=== PATIENT | female | born 1965 | race Caucasian/White ===

== ENCOUNTER 2023-12-20 10:18 | Observation (INO) ==
--- NOTE | 2023-12-20 10:43 | Emergency Department Note ---
Impression & Plan Chest pain, Transaminitis, Cholelithiasis, Hepatic steatosis ED Provider Note NAME: DENVER LYLE AGE: 58 SEX: F : 1965 ARRIVES VIA: Walk-In INFORMANT: Patient ED PROVIDER(S): Camron Mitchell MD CHIEF COMPLAINT: chest pain PLAN: Disposition: Admit MEDICAL DECISION MAKING: The patient is a pleasant 58-year-old woman with a past medical history of gastric bypass (10 years ago in [place]) hypertension, hyperlipidemia who presents to the Emergency Department via walk-in and accompanied by family for evaluation of acute onset epigastric and substernal chest pain began acutely around 4 AM last night and has been constant since then. She reports the pain is a stabbing sensation going to her back. She denies any associated shortness of breath or worsening with inspiration. She reports feeling nauseated but denies vomiting. She denies any diarrhea or constipation. She denies any fevers or chills. She reports her pain is a 7/10. On evaluation the patient is no distress, afebrile with vital signs otherwise stable. She appears clinically dry. Abdomen is nontender. EKG without overt acute ischemia. Chest x-ray negative for acute cardiopulmonary process. WBC, hemoglobin and platelets within normal limits. There is no left shift. Chemistry without metabolic acidosis. Patient LFTs are mildly elevated with total bili 1.8, direct bilirubin 1.2, AST and ALT 466 and 243, respectively and alk phos 143. INR 1.0. HS Troponin undetectable. CTA of the chest with dissection protocol was performed was negative for acute aortic pathology, PE or acute cardiopulmonary process otherwise. Visualized abdomen is unremarkable with post gastric bypass findings noted. Given the patient's transaminitis with obstructive pattern gallbladder ultrasound was ordered. On reevaluation however the patient was reporting improvement in her symptoms with minimal pain following IV fluid hydration, IV APAP, famotidine. She rated her discomfort at this time as a 3/10. Gallbladder ultrasound demonstrates cholelithiasis with mild gallbladder distention. However there is no biliary ductal dilatation or gallbladder wall thickening. There is no sonographic Khan sign. The pancreatic body is normal. Findings are not suggestive of acute cholecystitis though a HIDA scan could be obtained if indicated. Hepatic steatosis is also described. Case was discussed with Victoria Tabor, general surgery PA-C with Dr. Talbert, general surgery. Agrees with admission to medicine service for MRCP and trending of LFTs given the patient has no abdominal pain at this time and no evidence of ductal dilatation on ultrasound. Appreciate consultation recommendations. Case was discussed with Dr. Acosta, [facility] hospitalist, who will evaluate the patient for admission. Further management per admitting team. Triage Nursing notes reviewed and agree them. Prior/external medical records reviewed Vital Signs: reviewed Differential diagnosis: Gastroenteritis, food borne illness, infections, appendicitis, diverticulitis, inflammatory bowel disease, obstruction, GI bleed, biliary pathology, volvulus, as well as other pathologies. ER treatment provided: See below. Diagnostics interpreted by me: ECG: Normal sinus rhythm, 83 bpm, no ectopy, no overt ST elevation or depression, QTc 451, QRS 82. Cardiac Monitoring: An order for continuous cardiac monitoring was placed and demonstrated Normal sinus rhythm, 83 bpm, no ectopy Laboratory studies: See below Imaging studies: See below Consultation(s): Victoria Tabor general surgery PA-Gladys with Dr. Talbert, general surgery Case was discussed with Dr. Acosta, [facility] hospitalist, who will evaluate the patient for admission. HPI: The patient is a pleasant 58-year-old woman with a past medical history of gastric bypass (10 years ago in [place]) hypertension, hyperlipidemia who presents to the Emergency Department via walk-in and accompanied by family for evaluation of acute onset epigastric and substernal chest pain began acutely around 4 AM last night and has been constant since then. She reports the pain is a stabbing sensation going to her back. She denies any associated shortness of breath or worsening with inspiration. She reports feeling nauseated but denies vomiting. She denies any diarrhea or constipation. She denies any fevers or chills. She reports her pain is a 7/10. ROS: See above HPI for pertinent positives & negatives. A total of 10 systems reviewed and were otherwise negative. VITALS:See Below PHYSICAL EXAMINATION: GENERAL: Awake, alert, uncomfortable-appearing, in no distress, BMI 39.4. HENT: Normocephalic, atraumatic. Oropharynx with dry mucous membranes and otherwise unremarkable. EYES: Normal conjunctiva. Sclera non-icteric. NECK: Supple. No nuchal rigidity. FROM. No JVD. RESPIRATORY: Clear to auscultation. CARDIAC: Regular rate, normal rhythm. 3/6 systolic murmur. Extremities warm and well perfused. Pulses equal. ABDOMEN: Soft, non-distended. No tenderness to palpation. No rebound or guarding. No masses. MUSCULOSKELETAL: Chest examination reveals no tenderness. The back is symmetrical on inspection without obvious abnormality. There is no CVA tenderness to palpation. No joint edema. LOWER EXTREMITIES: Calves are equal size bilaterally and non-tender. No edema. No discoloration. NEURO: Normal sensorium. No sensory or motor deficits noted. SKIN: No rash or jaundice noted. Camron Mitchell MD Past Med/Surg History Problem List (Updated 12/21/23 @ 00:29 by Camron Mitchell MD) Hepatic steatosis (Acute) Cholelithiasis (Acute) Elevated LFTs Cholelithiasis Choledocholithiasis Transaminitis (Acute) Chest pain (Acute) Tear of lateral meniscus of left knee Osteoarthritis of left knee Ovarian cyst Depression Closed fracture of right distal radius (Acute) Medical History Hyperlipidemia Diabetes Hypertension Surgical History S/P tonsillectomy History of umbilical hernia repair S/P gastric bypass S/P shoulder surgery 2 separate shoulders Family History Grandmother (Maternal) Colorectal cancer Grandfather (Maternal) Myocardial infarction Other Diabetes Hypertension Denies family history of Ovarian cancer Prostate cancer Breast cancer Uterine cancer Social History Smoking Status: Never smoker Hx Alcohol Use: Yes Alcohol type: wine Hx Substance Use: No Preferred Language: Albanian Communication Ability: Effective 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 Beliefs That Will Affect Care: None Current Living Situation: Family Feels Safe at Home: Yes Safety Concerns: Feels Safe At This Time Assistive Devices: Glasses Allergies Allergies Allergy/AdvReac Type Severity Reaction Status Date / Time Penicillins Allergy Mild Rash Verified 07/27/23 09:20 Home Meds Home Medications Medication Instructions Recorded Confirmed multivitamin [Daily Multivitamin] 1 tab PO DAILY 12/01/22 12/20/23 aripiprazole 2 mg tablet 2 mg PO DAILY 01/04/23 12/20/23 lamotrigine 150 mg tablet 150 mg PO DAILY 01/04/23 12/20/23 lisinopril 10 mg tablet 10 mg PO DAILY 01/04/23 12/20/23 vilazodone 40 mg tablet (Viibryd) 40 mg PO DAILY 01/04/23 12/20/23 celecoxib 200 mg capsule 200 mg PO DAILY PRN Pain 12/20/23 12/20/23 ergocalciferol (vitamin D2) 1,250 50,000 unit PO WK 12/20/23 12/20/23 mcg (50,000 unit) capsule oxybutynin chloride 15 mg 15 mg PO DAILY PRN urinary 12/20/23 12/20/23 tablet,extended release 24 hr discomfort rosuvastatin 5 mg tablet 5 mg PO HS 12/20/23 12/20/23 semaglutide 2 mg/dose (8 mg/3 mL) 2 mg subcut WK 12/20/23 12/20/23 subcutaneous pen injector (Ozempic) Results & Data (ED) Vital Signs Vital Signs - 24 hr 12/20/23 10:26 12/20/23 10:39 12/20/23 12:00 Temperature 36.4 C L Temperature Source Skin Pulse Rate 86 84 Pulse Rate [Apical] Pulse Rate from SpO2 Sensor Pulse Rhythm Regular Pulse Rhythm [Apical] Pulse Strength [Apical] Respiratory Rate 20 22 Respiratory Effort / Characteristics Non-Labored Spontaneous Respiratory Depth Normal Respiratory Pattern Regular Blood Pressure 131/69 109/69 Blood Pressure [Left Arm] Blood Pressure Mean 89 78 Blood Pressure Mean [Left Arm] Pulse Oximetry 96 92 Oxygen Delivery Method Room Air Room Air Sepsis Recent Fever Within 48 Hours No Sepsis New/Unexplained Change in Mental Status N/A Sepsis Action Taken by Nursing No Action Required 12/20/23 12:12/20/23 12:20 12/20/23 12:21 Temperature Temperature Source Pulse Rate 74 73 68 Pulse Rate [Apical] Pulse Rate from SpO2 Sensor 74 71 Pulse Rhythm Pulse Rhythm [Apical] Pulse Strength [Apical] Respiratory Rate 19 14 Respiratory Effort / Characteristics Respiratory Depth Respiratory Pattern Blood Pressure Blood Pressure [Left Arm] Blood Pressure Mean Blood Pressure Mean [Left Arm] Pulse Oximetry 90 87 L Oxygen Delivery Method Sepsis Recent Fever Within 48 Hours Sepsis New/Unexplained Change in Mental Status Sepsis Action Taken by Nursing 12/20/23 12:30 12/20/23 12:30 12/20/23 12:42 Temperature Temperature Source Pulse Rate 63 69 Pulse Rate [Apical] Pulse Rate from SpO2 Sensor 66 64 Pulse Rhythm Pulse Rhythm [Apical] Pulse Strength [Apical] Respiratory Rate 14 14 Respiratory Effort / Characteristics Respiratory Depth Respiratory Pattern Blood Pressure 109/71 Blood Pressure [Left Arm] Blood Pressure Mean 79 Blood Pressure Mean [Left Arm] Pulse Oximetry 86 L 93 Oxygen Delivery Method Sepsis Recent Fever Within 48 Hours Sepsis New/Unexplained Change in Mental Status Sepsis Action Taken by Nursing 12/20/23 12:57 12/20/23 13:00 12/20/23 13:00 Temperature Temperature Source Pulse Rate 77 76 Pulse Rate [Apical] Pulse Rate from SpO2 Sensor 71 76 Pulse Rhythm Pulse Rhythm [Apical] Pulse Strength [Apical] Respiratory Rate 30 H 18 Respiratory Effort / Characteristics Respiratory Depth Respiratory Pattern Blood Pressure 118/72 Blood Pressure [Left Arm] Blood Pressure Mean 87 Blood Pressure Mean [Left Arm] Pulse Oximetry 92 94 Oxygen Delivery Method Sepsis Recent Fever Within 48 Hours Sepsis New/Unexplained Change in Mental Status Sepsis Action Taken by Nursing 12/20/23 13:24 12/20/23 13:27 12/20/23 13:30 Temperature Temperature Source Pulse Rate 71 77 Pulse Rate [Apical] Pulse Rate from SpO2 Sensor 72 77 Pulse Rhythm Pulse Rhythm [Apical] Pulse Strength [Apical] Respiratory Rate 12 14 Respiratory Effort / Characteristics Respiratory Depth Respiratory Pattern Blood Pressure 124/75 Blood Pressure [Left Arm] Blood Pressure Mean 86 Blood Pressure Mean [Left Arm] Pulse Oximetry 96 97 Oxygen Delivery Method Sepsis Recent Fever Within 48 Hours Sepsis New/Unexplained Change in Mental Status Sepsis Action Taken by Nursing 12/20/23 13:33 12/20/23 15:04 Temperature 36.7 C Temperature Source Oral Pulse Rate 75 Pulse Rate [Apical] 74 Pulse Rate from SpO2 Sensor 76 Pulse Rhythm Pulse Rhythm [Apical] Regular Pulse Strength [Apical] Normal Respiratory Rate 19 18 Respiratory Effort / Characteristics Non-Labored Spontaneous Respiratory Depth Normal Respiratory Pattern Regular Blood Pressure Blood Pressure [Left Arm] 117/83 Blood Pressure Mean Blood Pressure Mean [Left Arm] 94 Pulse Oximetry 96 99 Oxygen Delivery Method Room Air Sepsis Recent Fever Within 48 Hours Sepsis New/Unexplained Change in Mental Status Sepsis Action Taken by Nursing Laboratory Data Attestation: I reviewed the patient's lab results. 12/20/23 10:58 12/20/23 10:58 Lab Results 12/20/23 12/20/23 Range/Units 10:58 11:06 WBC 5.08 (4.8-10.8) K/ul RBC 4.03 L (4.20-5.40) M/uL Hgb 12.4 (12.0-16.0) g/dl POC Hgb 12.2 (12.0-16.0) g/dl Hct 36.8 L (37.0-47.0) % POC Hct 36 L (37-47) % MCV 91.3 (80.0-100.0) fL MCH 30.8 (25.0-34.0) pg MCHC 33.7 (32.0-36.0) g/dL RDW Std Deviation 43.2 (36.4-46.3) fL RDW Coeff of Christelle 13.0 (11.5-14.5) % Plt Count 141 (130-400) K/uL MPV 10.3 (9.4-12.4) fL Immature Gran % (Auto) 0.2 % Neut % (Auto) 74.4 % Lymph % (Auto) 16.1 % Perry % (Auto) 8.1 % Eos % (Auto) 0.6 % Baso % (Auto) 0.6 % Neut # (Auto) 3.78 (1.40-6.50) K/uL Lymph # (Auto) 0.82 L (1.20-3.40) K/uL Perry # (Auto) 0.41 (0.11-0.59) K/uL Eos # (Auto) 0.03 (0.00-0.50) K/uL Baso # (Auto) 0.03 (0.00-0.20) K/uL Immature Gran # (Auto) 0.01 (0.01-0.20) K/uL PT 10.5 (9.0-12.0) Seconds INR 1.0 (0.9-1.1) POC Sodium 139 (135-144) mmol/L Sodium 139 (136-145) mmol/L POC Potassium 4.2 (3.3-5.0) mmol/L Potassium 4.3 (3.5-5.1) mmol/L POC Chloride 105 (101-112) mmol/L Chloride 105 (98-107) mmol/L Carbon Dioxide 26 (21-32) mmol/L POC Total CO2 24 (24-31) mmol/L Anion Gap 8 (3-11) POC Anion Gap 15.0 L (16-25) mmol/L POC BUN 16 (7-18) mg/dl BUN 16 (6-23) mg/dl Creatinine 0.67 (0.6-1.2) mg/dl POC Creatinine 0.7 (0.6-1.3) mg/dl Est Cr Clr Drug Dosing 112.8 ml/min Est GFR ( Amer) 113.1 ml/min Est GFR (Non-Af Amer) 97.6 ml/min BUN/Creatinine Ratio 23.9 H (10-20) Glucose 90 (70-99(Fasting)) mg/dl POC Glucose (other) 92 (70-99) mg/dl Calcium 9.4 (8.6-10.3) mg/dl POC Ioniz Calcium Blanca 1.17 (1.12-1.32) mmol/l Total Bilirubin 1.8 H (0.2-1.0) mg/dl Direct Bilirubin 1.2 H (0-0.2) mg/dl AST 466 H (13-39) U/L ALT 243 H (7-52) U/L Alkaline Phosphatase 143 H (34-104) U/L Troponin I High Sens < 2.3 (0-14) pg/ml Total Protein 7.3 (6.0-8.3) gm/dl Albumin 4.6 (3.4-5.0) gm/dl Globulin 2.7 (2.5-4.0) gm/dl Albumin/Globulin Ratio 1.7 (0.9-2) Lipase 64 (11-82) U/L Administered Medications Ergocalciferol (Ergocalciferol 1250 Mcg (50,000 Units) Cap) 1,250 mcg PO Q7D [facility] Stop: 01/19/24 18:59 Last Admin: 12/20/23 21:36 Dose: 1,250 mcg Documented By: IVETH Famotidine (Famotidine 10 Mg Tablet) 10 mg PO BID [facility] Stop: 01/19/24 20:59 Last Admin: 12/20/23 21:36 Dose: 10 mg Documented By: IVETH Acetaminophen (Ofirmev) 1,000 mg in 100 mls @ 400 mls/hr IV Q8H PRN PRN Reason: pain, first line Stop: 12/23/23 17:59 Last Infusion: 12/20/23 20:25 Dose: Infused Documented By: Admin: 12/20/23 20:07 Dose: 400 mls/hr Documented By: IVETH Ceftriaxone Sodium (Rocephin) 2,000 mg in 50 mls @ 100 mls/hr IV Q24H [facility] Stop: 12/30/23 18:29 Last Infusion: 12/20/23 20:10 Dose: Infused Documented By: Admin: 12/20/23 19:34 Dose: 100 mls/hr Documented By: IVTEH Metronidazole (Flagyl) 500 mg in 100 mls @ 100 mls/hr IV Q8H [facility]; Protocol Stop: 12/30/23 18:29 Last Infusion: 12/20/23 21:15 Dose: Infused Documented By: Admin: 12/20/23 20:08 Dose: 100 mls/hr Documented By: IVETH Miscellaneous (Vilazodone [Viibryd] 40 Mg Tablet- Order Awaiting Action) 1 each N/A QS [facility] Stop: 01/19/24 19:29 Last Admin: 12/21/23 00:06 Dose: Not Given Documented By: Admin: 12/20/23 18:54 Dose: Not Given Documented By: MARCO ANTONIO Discontinued Medications Sodium Chloride (Nss) 1,000 mls @ 999 mls/hr IV .Q1H1M ONE Stop: 12/20/23 11:39 Last Infusion: 12/20/23 14:57 Dose: Infused Documented By: Admin: 12/20/23 11:00 Dose: 999 mls/hr Documented By: CATRINA Acetaminophen (Ofirmev) 1,000 mg in 100 mls @ 400 mls/hr IV NOW STA Stop: 12/20/23 10:53 Last Infusion: 12/20/23 11:26 Dose: Infused Documented By: Admin: 12/20/23 10:59 Dose: 400 mls/hr Documented By: CATRINA Famotidine (Pepcid 20mg Iv Push) 20 mg in 5 mls @ 2.5 mls/min IV NOW STA Stop: 12/20/23 10:40 Last Admin: 12/20/23 10:58 Dose: 2.5 mls/min Documented By: CATRINA Multivitamins 10 ml/ Thiamine HCl 100 mg/ Folic Acid 1 mg/Sodium Chloride 1,011.2 mls @ 500 mls/hr IV .Q2H2M ONE Stop: 12/20/23 20:40 Last Infusion: 12/21/23 00:11 Dose: Infused Documented By: Admin: 12/20/23 21:53 Dose: 500 mls/hr Documented By: IVETH Ioversol (Optiray 320 100ml) 112 ml IV ONCE ONE Stop: 12/20/23 11:34 Last Admin: 12/20/23 11:33 Dose: 112 ml Documented By: MICHELE Lorazepam (Lorazepam 2 Mg/1 Ml Vial) 0.5 mg IV NOW STA Stop: 12/20/23 16:21 Last Admin: 12/20/23 16:27 Dose: 0.5 mg Documented By: MAKAYLA Imaging Data Radiologist's Impression: Gallbladder Ultrasound 12/20/23 12:31 US gallbladder CLINICAL HISTORY: upper abdominal pain, transaminitis COMPARISON STUDY: CT of the abdomen and pelvis October 27, 2022. FINDINGS: Hepatic echogenicity is increased. There is no biliary ductal dilatation. There are no hepatic lesions. The gallbladder is mildly distended. There is no gallbladder wall thickening. A few small stones within the gallbladder are present. There was no definite sonographic Khan sign. The pancreatic body is normal. Head and tail are obscured. There is no right hydronephrosis. IMPRESSION: 1. Cholelithiasis with mild gallbladder distention. No definite sonographic Khan sign. The findings are not highly suggestive of acute cholecystitis although a hepatobiliary scan could be obtained if indicated. 2. Hepatic steatosis. ACT 112: Negative or not required by law. Electronically signed by: Júnior Bocanegra M.D. 12/20/2023 2:22 PM Cholangiopancreatography MRI 12/20/23 15:24 MRCP CLINICAL HISTORY: elevated LFT's TECHNIQUE: Utilizing a 1.5 Denice magnet and dedicated coil, multiplanar, multiecho imaging of the upper abdomen was performed utilizing heavily T2 weighted pulsing sequences without IV contrast. COMPARISON STUDY: Right upper quadrant ultrasound performed earlier today. FINDINGS: There is no intra or extrahepatic biliary ductal dilatation. No common bile duct calculi are identified. The common bile duct measures 6 mm in caliber. There is no pancreatic ductal dilatation. Several small gallstones within the gallbladder are present. The gallbladder is mildly distended; wall thickening. Hepatic steatosis is better depicted on prior ultrasound. Unenhanced images of the spleen, adrenal glands and kidneys are unremarkable. No pancreatic abnormality is identified on unenhanced exam. The caliber and wall thickness of visualized small and large bowel are normal. There are postoperative findings consistent with Marie-en-Y gastric bypass. IMPRESSION: 1. No biliary ductal dilatation. No common bile duct calculi identified. 2. Cholelithiasis with mild gallbladder distention and mild gallbladder wall thickening. The findings could reflect chronic or acute cholecystitis. A hepatobiliary scan could be obtained if indicated. ACT 112: Negative or not required by law. Electronically signed by: Júnior Bocanegra M.D. 12/20/2023 5:07 PM Discharge Plan Visit Data Chief Complaint: Abdominal Pain Stated Complaint: UPPER ABD PAIN EXTENDING TO CHEST & MID BACK ED Provider: Camron Mitchell Discharge Problem: Chest pain, Transaminitis, Cholelithiasis, Hepatic steatosis Patient Disposition: Admitted As Inpatient Discharge Instructions Interventions: ED Discharge Assessment Last Done: 12/20/23 17:38 Discharge Problem: Chest pain Qualifiers: Chest pain type: unspecified Qualified Code(s): R07.9 - Chest pain, unspecified Cholelithiasis Qualifiers: Cholelithiasis location: gallbladder Cholecystitis presence: without cholecystitis Biliary obstruction: without biliary obstruction Qualified Code(s): K80.20 - Calculus of gallbladder without cholecystitis without obstruction
[2023-12-20] MEDS: FAMOTIDINE 20MG IV PUSH 20 MG/5 ML SYR IV STA (10:58)
[2023-12-20] MEDS: ACETAMINOPHEN 1,000 MG/100 ML VIAL IV STA (10:59)
[2023-12-20] MEDS: SODIUM CHLORIDE 0.9% 1,000 ML IV ONE (11:00)
[2023-12-20 11:19] LABS: iSTAT Creatinine 0.7 mg/dl (0.6-1.3); iSTAT Hemoglobin 12.2 g/dl (12.0-16.0); iSTAT Ionized Calcium 1.17 mmol/l (1.12-1.32); iSTAT Potassium 4.2 mmol/L (3.3-5.0)
--- NOTE | 2023-12-20 11:21 | XRay Report ---
XR chest 1V portable CLINICAL HISTORY: Chest pain, nonspecific COMPARISON STUDY: No previous studies for comparison. FINDINGS: Lung volumes are normal. Lungs are clear. There is no pneumothorax or pleural effusion. Car diac size is normal. Mediastinal contours are normal. There is no evidence for pulmonary edema. IMPRESSION: No acute cardiopulmonary findings. ACT 112: Negative or not required by law. Electronically signed by: Júnior Bocanegra M.D. 12/20/2023 11:20 AM
[2023-12-20 11:22] LABS: Basophils # (auto) 0.03 K/uL (0.00-0.20); Basophils % (auto) 0.6 %; Eosinophils # (auto) 0.03 K/uL (0.00-0.50); Eosinophils % (auto) 0.6 %; Hematocrit (blood only) 36.8 % (37.0-47.0); Hemoglobin 12.4 g/dl (12.0-16.0); Immature Granulocytes # (auto) 0.01 K/uL (0.01-0.20); Immature Granulocytes % (auto) 0.2 %; Lymphocytes # (auto) 0.82 K/uL (1.20-3.40); Lymphocytes % (auto) 16.1 %; Mean Corpuscular Hemoglobin 30.8 pg (25.0-34.0); Mean Corpuscular Hgb Conc 33.7 g/dL (32.0-36.0); Mean Corpuscular Volume 91.3 fL (80.0-100.0); Mean Platelet Volume 10.3 fL (9.4-12.4); Monocytes # (auto) 0.41 K/uL (0.11-0.59); Monocytes % (auto) 8.1 %; Neutrophils # (auto) 3.78 K/uL (1.40-6.50); Neutrophils % (auto) 74.4 %; Platelet Count 141 K/uL (130-400); RDW Standard Deviation 43.2 fL (36.4-46.3); Red Blood Count 4.03 M/uL (4.20-5.40); White Blood Count 5.08 K/ul (4.8-10.8)
[2023-12-20] MEDS: OPTIRAY 320 100ml IV ONE (11:33)
[2023-12-20 11:40] LABS: Alanine Aminotransferase 243 U/L (7-52); Albumin Globulin Ratio 1.7 (0.9-2); Albumin Level 4.6 gm/dl (3.4-5.0); Alkaline Phosphatase 143 U/L (34-104); Anion Gap 8 (3-11); Aspartate Aminotransferase 466 U/L (13-39); BUN Creatinine Ratio 23.9 (10-20); Bilirubin Direct 1.2 mg/dl (0-0.2); Bilirubin,Total 1.8 mg/dl (0.2-1.0); Blood Urea Nitrogen 16 mg/dl (6-23); Calcium 9.4 mg/dl (8.6-10.3); Carbon Dioxide 26 mmol/L (21-32); Chloride 105 mmol/L (98-107); Creatinine Clr Calc Pharmacy 112.8 ml/min; Est GFR (African American) 113.1 ml/min; Est GFR (Non-African American) 97.6 ml/min; Globulin 2.7 gm/dl (2.5-4.0); Glucose 90 mg/dl (70-99(Fasting)); Lipase 64 U/L (11-82); Potassium 4.3 mmol/L (3.5-5.1); Sodium 139 mmol/L (136-145); Total Protein 7.3 gm/dl (6.0-8.3)
[2023-12-20 11:43] LABS: Troponin I High Sensitivity < 2.3 pg/ml (0-14)
[2023-12-20 11:52] LABS: Prothrombin Time 10.5 Seconds (9.0-12.0)
--- NOTE | 2023-12-20 12:07 | CT Scan Report ---
CT angio chest dissec wo/w con CLINICAL HISTORY: chest to back pain, HTN TECHNIQUE: Multidetector row helical CT of the chest was performed before and after injection of IV c ontrast. Coronal, sagittal, and MIP reformations were obtained. Automated dose lowering techniques an d/or adjustment according to patient size were utilized for this exam. CT DOSE: 1914.11 mGy.cm Comparison: Comparison is made to chest radiograph 12/20/2023 FINDINGS: Lungs and pleura: Normal. Heart and pericardium: Heart size is normal. No pericardial effusion. Vessels: No aortic dissection or intramural hematoma is seen. Mediastinum and keira: Unremarkable. Chest wall and lower neck: Unremarkable. Abdomen: Gastric bypass changes are seen. Bones: Degenerative changes in the thoracic spine. IMPRESSION: No acute abnormality and in particular no evidence of acute aortic injury. ACT 112: Negative or not required by law. Electronically signed by: Ervin Borja M.D. 12/20/2023 12:05 PM
--- NOTE | 2023-12-20 13:43 | Electrocardiogram Report ---
Test Reason : Blood Pressure : */* mmHG Vent. Rate : 83 BPM Atrial Rate : 83 BPM P-R Int : 152 ms QRS Dur : 82 ms QT Int : 384 ms P-R-T Axes : 34 -11 18 degrees QTcB Int : 451 ms Normal sinus rhythm Normal ECG No previous ECGs available Confirmed by Jarrett Macias ([id number]) on 12/20/2023 1:43:36 PM Referred By: REFERRED SELF Confirmed By: Jarrett Macias
--- NOTE | 2023-12-20 14:24 | Ultrasound Report ---
US gallbladder CLINICAL HISTORY: upper abdominal pain, transaminitis COMPARISON STUDY: CT of the abdomen and pelvis October 27, 2022. FINDINGS: Hepatic echogenicity is increased. There is no biliary ductal dilatation. There are no hepa tic lesions. The gallbladder is mildly distended. There is no gallbladder wall thickening. A few smal l stones within the gallbladder are present. There was no definite sonographic Khan sign. The pancr eatic body is normal. Head and tail are obscured. There is no right hydronephrosis. IMPRESSION: 1. Cholelithiasis with mild gallbladder distention. No definite sonographic Khan sign. The findings are not highly suggestive of acute cholecystitis although a hepatobiliary scan could be obtained if indicated. 2. Hepatic steatosis. ACT 112: Negative or not required by law. Electronically signed by: Júnior Bocanegra M.D. 12/20/2023 2:22 PM
--- NOTE | 2023-12-20 15:32 | History & Physical Report ---
Date of Service December 20, 2023 Assessment & Plan (1) Choledocholithiasis: Plan: ? Acute semaj - +RUQ TTP on exam Cholelithiasis with mild gallbladder distention. No definite sonographic Khan sign. The findings are not highly suggestive of acute cholecystitis although a hepatobiliary scan could be obtained if indicated. - Gallbladder ultrasoundno ductal dilation was noted on ultrasound. - Case was reviewed surgery was consulted while pt was in the ER. Recommended inpatient admission, surgical consult,GI consult, MRCP, trend LFTs. MRCP negative. Hepatitis acute panel pending -MRCP without evidence of ductal obstruction, no indication for transfer for ERCP HIDA scan pending. N.p.o. after midnight, no narcotics after midnight pending HIDA Empiric coverage for potential cholecystitis with rocephin/Flagyl ordered due to penicillin allergy Statin held Plan Chronic stable issues Hypertension: Lisinopril held Anxiety/depression: Continue home medication DVT prophylaxis: SCDs pending MRCP and surgical evaluation. If no surgical interventions anticipated in 24 hours, Lovenox daily Diet: N.p.o., IV FM CODE STATUS: Full code Disposition: Medical surgical History of Present Illness Primary Care Provider: Ana Gabriel Kelly is a 58-year-old female with a past medical history of gastric bypass who presents with epigastric and substernal chest pain which began approximately 12 hours prior to hospitalist assessment with a constant stabbing pain since that time. She was found to have a obstructive transaminitis. Chest CTA for initial chest pain was without acute abnormality. Due to transaminitis gallbladder ultrasound was obtained and showed cholelithiasis with mild gallbladder distention. Patient's pain had clinically improved on reassessment to around 3/10. 8/10 epigastric pain radiating across her bilateral back sudden onset ~3am 'woke me from a sleep.' Improved to 2/10, seemed to gradually improve since arriving in the ER and w/ fluids and tylenol/pepcid. No history of exertional ches tpain/chest pain. No history of GERD/reflux. BMs regular, brown. No josef colored BMs, no hematochezia/melana. No fevers or chills, feels colder than normal today. No shortness of breath. No kidney problems. No lung problems. No heart problems. No hx diabetes. No dysuria. No voiding changes/problems. Thirsty, but diminished appetite. No nausea/vomiting. Medical History: Reviewed Medications: Reviewed. Rash to PCN Surgical History: Reviewed Family history: Reviewed Allergies: Reviewed Social History: No tobacco product use. ETOH every other day 1 glass of wine. Code Status: Full Code Allergies Allergy/AdvReac Type Severity Reaction Status Date / Time Penicillins Allergy Mild Rash Verified 07/27/23 09:20 Home Medications Medication Instructions Recorded Confirmed Type multivitamin [Daily Multivitamin] 1 tab PO DAILY 12/01/22 12/20/23 History aripiprazole 2 mg tablet 2 mg PO DAILY 01/04/23 12/20/23 History lamotrigine 150 mg tablet 150 mg PO DAILY 01/04/23 12/20/23 History lisinopril 10 mg tablet 10 mg PO DAILY 01/04/23 12/20/23 History vilazodone 40 mg tablet (Viibryd) 40 mg PO DAILY 01/04/23 12/20/23 History celecoxib 200 mg capsule 200 mg PO DAILY PRN Pain 12/20/23 12/20/23 History ergocalciferol (vitamin D2) 1,250 50,000 unit PO WK 12/20/23 12/20/23 History mcg (50,000 unit) capsule oxybutynin chloride 15 mg 15 mg PO DAILY PRN urinary 12/20/23 12/20/23 History tablet,extended release 24 hr discomfort rosuvastatin 5 mg tablet 5 mg PO HS 12/20/23 12/20/23 History semaglutide 2 mg/dose (8 mg/3 mL) 2 mg subcut WK 12/20/23 12/20/23 History subcutaneous pen injector (Ozempic) Past Med/Surg History Problem List (Updated 12/20/23 @ 16:07 by Hugo Talbert DO) Elevated LFTs Cholelithiasis Choledocholithiasis Transaminitis (Acute) Chest pain (Acute) Tear of lateral meniscus of left knee Osteoarthritis of left knee Ovarian cyst Depression Closed fracture of right distal radius (Acute) Medical History Hyperlipidemia Diabetes Hypertension Surgical History S/P tonsillectomy History of umbilical hernia repair S/P gastric bypass S/P shoulder surgery 2 separate shoulders Family History Grandmother (Maternal) Colorectal cancer Grandfather (Maternal) Myocardial infarction Other Diabetes Hypertension Denies family history of Ovarian cancer Prostate cancer Breast cancer Uterine cancer Social History Smoking Status: Never smoker Hx Alcohol Use: Yes Alcohol type: wine Hx Substance Use: No Preferred Language: Welsh Communication Ability: Effective Last Ironer Required: No Beliefs That Will Affect Care: None Current Living Situation: Family Feels Safe at Home: Yes Assistive Devices: Glasses Physical Exam Physical Exam: General: A&Ox3. NAD. Cooperative. HEENT: Atraumatic, normocephalic. Vision/hearing grossly intact Pulm: CTAB A&P. -wheezes, -rales, -rhonchi. Symmetrical chest rise. No increased work of breathing. No respiratory distress. Cardiac: RRR, -mrg. Radial pulses intact and symmetrical. Abdominal:+epigastric and RUQ TTP without rebound/guarding. Abd soft. Ext: warm, dry Results & Data Results & Data Vital Signs (Past 12 Hours) Vital Signs Temp Pulse Pulse Resp BP BP Pulse Ox 12/20/23 15:04 36.7 C 74 18 117/83 99 12/20/23 13:33 75 19 96 12/20/23 13:30 124/75 12/20/23 13:27 77 14 97 12/20/23 13:24 71 12 96 12/20/23 13:00 76 18 94 12/20/23 13:00 118/72 12/20/23 12:57 77 30 H 92 12/20/23 12:42 69 14 93 12/20/23 12:30 63 14 86 L 12/20/23 12:30 109/71 12/20/23 12:21 68 14 87 L 12/20/23 12:20 73 12/20/23 12:09 74 19 90 12/20/23 12:00 109/69 12/20/23 10:39 84 22 92 12/20/23 10:26 36.4 C L 86 20 131/69 96 O2 Del Method 12/20/23 15:04 Room Air 12/20/23 13:33 12/20/23 13:30 12/20/23 13:27 12/20/23 13:24 12/20/23 13:00 12/20/23 13:00 12/20/23 12:57 12/20/23 12:42 12/20/23 12:30 12/20/23 12:30 12/20/23 12:21 12/20/23 12:20 12/20/23 12:09 12/20/23 12:00 12/20/23 10:39 Room Air 12/20/23 10:26 Room Air PG Care Time/CCT Total # of Minutes Spent Total Time Spent with Patient: Total time spent is greater than 50% in coordination of care (as documented) at patient's floor/unit and/or counseling patient: Coding Level of Care Code 39136 INT INP/OBS CARE 375MIN Diagnoses Choledocholithiasis K80.50
--- NOTE | 2023-12-20 15:41 | Surgery Consultation ---
Date of Consultation December 20, 2023 Assessment & Plan (1) Cholelithiasis: 58-year-old female with cholelithiasis and elevated LFTs Her ultrasound images and results were personally viewed and interpreted by myself She has no sonographic or clinical signs of acute cholecystitis Would recommend admission to medicine, keeping n.p.o. and getting an MRCP due to her elevated LFTs Would also recommend a GI consult to weigh in on her elevated LFTs No plans for cholecystectomy at this time, would repeat her LFTs in the morning and if they are going down, we can consider cholecystectomy (2) Elevated LFTs: History of Present Illness Reason for Consultation: Gallstones, elevated LFTs History of Present Illness This is a 58-year-old female who presented to the ER today with epigastric abdominal pain, sharp in nature with radiation up into her chest and around to her back since 3 AM. No aggravating or relieving factors. She is feeling better at this point. She denies any fevers or chills. She denies any nausea or vomiting or constipation or diarrhea. She denies any scleral icterus, jaundice, tea colored urine, acholic stools. Previous abdominal surgeries include gastric bypass and umbilical hernia repair. Allergies Allergy/AdvReac Type Severity Reaction Status Date / Time Penicillins Allergy Mild Rash Verified 07/27/23 09:20 Home Medications Medication Instructions Recorded Confirmed Type multivitamin [Daily Multivitamin] 1 tab PO DAILY 12/01/22 12/20/23 History aripiprazole 2 mg tablet 2 mg PO DAILY 01/04/23 12/20/23 History lamotrigine 150 mg tablet 150 mg PO DAILY 01/04/23 12/20/23 History lisinopril 10 mg tablet 10 mg PO DAILY 01/04/23 12/20/23 History vilazodone 40 mg tablet (Viibryd) 40 mg PO DAILY 01/04/23 12/20/23 History celecoxib 200 mg capsule 200 mg PO DAILY PRN Pain 12/20/23 12/20/23 History ergocalciferol (vitamin D2) 1,250 50,000 unit PO WK 12/20/23 12/20/23 History mcg (50,000 unit) capsule oxybutynin chloride 15 mg 15 mg PO DAILY PRN urinary 12/20/23 12/20/23 History tablet,extended release 24 hr discomfort rosuvastatin 5 mg tablet 5 mg PO HS 12/20/23 12/20/23 History semaglutide 2 mg/dose (8 mg/3 mL) 2 mg subcut WK 12/20/23 12/20/23 History subcutaneous pen injector (Ozempic) Patient History Medical History Hyperlipidemia Diabetes Hypertension Surgical History S/P tonsillectomy History of umbilical hernia repair S/P gastric bypass S/P shoulder surgery 2 separate shoulders Family History Grandmother (Maternal) Colorectal cancer Grandfather (Maternal) Myocardial infarction Other Diabetes Hypertension Denies family history of Ovarian cancer Prostate cancer Breast cancer Uterine cancer Social History Smoking Status: Never smoker Hx Alcohol Use: Yes Hx Substance Use: No Preferred Language: [place] Feels Safe at Home: Yes Review of Systems Constitutional: no fever and no chills Eyes: no blind spots and no worsening vision Ear, Nose, Mouth, Throat: no ear pain and no hearing loss Respiratory: no cough and no dyspnea Cardiovascular: no chest pain and no dyspnea on exertion Gastrointestinal: + abdominal pain; no nausea, no vomiting , no constipation and no diarrhea/loose stools Genitourinary: no dysuria and no difficulty urinating Musculoskeletal: no back pain and no neck pain Integumentary: no acne, no changing lesions and no skin ulcer Neurologic: no headache(s) and no abnormal speech Psychiatric: no behavioral changes and no depression Hematologic / Lymphatic: no easy bleeding and no easy bruising Physical Exam Constitutional: WD/WN, vitals as above Eyes: PERRL, conjunctivae normal, anicteric sclerae ENMT: external ear and nose normal, oropharynx normal Neck: trachea midline, no thyromegaly Respiratory: normal respiratory effort, lungs clear to auscultation Cardiovascular: RRR, no murmur, no edema Gastrointestinal (Abdomen): Inspection/Auscultation: abdomen normal to inspection; abdomen not distended Percussion/Palpation: abdomen soft; abdomen nontender, no guarding and no hernia Negative Khan's Musculoskeletal: no cyanosis or clubbing, extremities motor strength 5/5 Skin: no rashes, warm and dry Neurologic: PERRL, EOMI, accommodation nl, no face palsy, no dysarthria Psychiatric: A+Ox3, euthymic affect Results & Data Vital Signs (Past 12 Hours) Vital Signs Temp Pulse Pulse Resp BP BP Pulse Ox 12/20/23 15:04 36.7 C 74 18 117/83 99 12/20/23 13:33 75 19 96 12/20/23 13:30 124/75 12/20/23 13:27 77 14 97 12/20/23 13:24 71 12 96 12/20/23 13:00 76 18 94 12/20/23 13:00 118/72 12/20/23 12:57 77 30 H 92 12/20/23 12:42 69 14 93 12/20/23 12:30 63 14 86 L 12/20/23 12:30 109/71 12/20/23 12:21 68 14 87 L 12/20/23 12:20 73 12/20/23 12:09 74 19 90 12/20/23 12:00 109/69 12/20/23 10:39 84 22 92 12/20/23 10:26 36.4 C L 86 20 131/69 96 O2 Del Method 12/20/23 15:04 Room Air 12/20/23 13:33 12/20/23 13:30 12/20/23 13:27 12/20/23 13:24 12/20/23 13:00 12/20/23 13:00 12/20/23 12:57 12/20/23 12:42 12/20/23 12:30 12/20/23 12:30 12/20/23 12:21 12/20/23 12:20 12/20/23 12:09 12/20/23 12:00 12/20/23 10:39 Room Air 12/20/23 10:26 Room Air PG Care Time/CCT Total # of Minutes Spent Total Time Spent with Patient: Total time spent is greater than 50% in coordination of care (as documented) at patient's floor/unit and/or counseling patient: Coding Level of Care Code 12390 OFFICE CONSULT LVL 55M Diagnoses Cholelithiasis K80.20 Elevated LFTs R79.89
[2023-12-20 15:49] LABS: Appearance Urine Clear (Clear); Bacteria Urine Automated 3+ (None Seen); Bilirubin Urine Negative (Negative); Blood Urine Negative (Negative); Cast Urine Automated 0-2 /lpf (0-2); Color Urine Yellow; Glucose Urine UA Negative (Negative); Ketones Urine Negative (Negative); Leukocyte Esterase Urine Trace (Negative); Nitrite Urine Negative (Negative); Protein Urine Negative (Negative); RBC Urine Automated 0-2 /hpf (0-2); Specific Gravity Urine > 1.045 (1.000-1.030); Urobilinogen Urine Negative (Negative); pH Urine 5.5 (4.5-7.5)
[2023-12-20] MEDS ORDERED: MoRPHine SULFATE 4 MG/ML 1 ML CARP\\VIAL IV PRN (15:55)
[2023-12-20] MEDS ORDERED: ONDANSETRON INJ 2 MG/ML 2 ML VIAL IV PRN (15:55)
--- OUTSIDE RECORDS SUMMARY | 2023-12-20 15:56 | External Medical Summary | Continuity of Care Document ---
Author Name Unknown Organization [facility] 0 [facility] [address] [place] [phone] Care Team Providers Care Senior Sales Director Name Role Phone Ana Rios Primary Care Physician [phone] Encounter [facility] [id number] Date(s): 07/26/23 - 07/26/23 [facility] 0 [facility] [address] [facility] [address] [facility] [address] [place] [address] [phone] Encounter Diagnosis Arthritis of knee(Discharge Diagnosis) - 06/05/23 History of gastric bypass(Discharge Diagnosis) - 07/26/23 Controlled diabetes mellitus with hyperglycemia(Discharge Diagnosis) - 07/26/23 Depression(Discharge Diagnosis) - 07/26/23 Discharge Disposition: Home or Self Care Attending Physician: KARLA Rios Kimberly A Allergies, Adverse Reactions, Alerts Substance Reaction Severity Status PCN (penicillin) rash Active Assessment and Plan Extracted from: Title:Office Visit Note Author:KARLA Rios Kim berly A Date:07/26/23 1.Depression STATUS:Chronic stable. -Follows with [facility] usually every 4-6 weeks -Currently controlled on Abilify, Lamictal, Vilazodone and Lorazepam -Recently started on Clonidine 0.1mg at bedtime -Helps her to fall asleep but not necessarily to stay asleep. -Mood has remained stable on the above regimen -Denies any roller coaster mood swings -Did discuss that her medications including Abilify and Vilazodone can both lead to weight gain. -Denies any SI/HI but does have trouble with insomnia DATA:Labs reviewed. GOAL:Maintain stability. PLAN:Cont current monitoring. Close followup with [facility] with any new concerns or questions. Controlled diabetes mellitus with hyperglycemia STATUS:Chronic stable. -On Ozempic weekly, slowly increasing her dosing -Now back to using the coupon and supply has improved -Does not check blood sugars regularly -Is on several medications that cause hyperglycemia -No hypoglycemic episodes, polyuria, polydipsia, polyphagia, numbness/tingling in extremities, poor healing wounds, foot ulcerations, blurred vision, loss of vision, chest pain, SOB, palpitations, tachycardia, loss of balance or falls. DATA:Labs reviewed. GOAL:Maintain stability. PLAN:Cont current monitoring. No change in treatments Continue with Ozempic 1mg weekly Get labs prior to next visit Discussed importance of good blood sugar control. Discussed goal FBS of <130. Sequelae of long-term uncontrolled DM reviewed, including retinopathy, kidney disease, etc.. Time spent on pre-visit plannin min Face to face time spent w/ patient:20 min Time spent documenting pertinent clinical information into the EMR:7 min Total time: 31 min Immunizations Given and Recorded Vaccine Date Status Refusal Reason influenza virus vaccine, inactivated 02/22/23 Give n influenza virus vaccine, inactivated 11/18/19 Kt rded influenza virus vaccine, inactivated 11/26/17 Kt rded influenza virus vaccine, inactivated 12/17/15 Kt rded influenza virus vaccine, inactivated 03/22/15 Kt rded SARS-CoV-2 mRNA (tozinameran 5y-11y) 01/13/21 Kt rded tetanus/diphtheria/pertuss, acel (Tdap) 11/21/19 R ecorded Medications ARIPiprazole 2 mg oral tablet 1 tab, PO, Daily Start Date: 05/18/22 Status: Ordered celecoxib 200 mg oral capsule Start: 06/13/23 13:28:00 EST, 1 cap, PO, Daily, Disp# 30 cap, Refills: 0, PRN: NEEDED FOR PAIN, Pharmacy: [id number] Start Date: 06/13/23 Status: Ordered Euflexxa 10 mg/mL intra-articular solution Start: 06/05/23 16:02:00 EST, 20 mg =, intra-articular, q7days, Disp# 6 mL, Refills: 0, 3 syringes for L knee. Please ship to physician's office: [id number] [place] [address], [place] [address], Note to Pharmacy: L KNEE SAURABH M17.12, Pharmacy: [facility] Start Date: 06/05/23 Stop Date: 06/26/23 Status: Ordered lamoTRIgine 150 mg oral tablet Start: 05/18/22 13:13:00 EST, 1 tab, PO, Daily Start Date: 05/18/22 Status: Ordered lisinopril 10 mg oral tablet Start: 06/13/23 21:22:00 EST, 1 tab, PO, Daily, Disp# 90 tab, Refills: 3, Pharmacy: [facility] #[id number] Start Date: 06/13/23 Status: Ordered meloxicam 15 mg oral tablet Start: 06/29/23 15:18:00 EDT, 1 tab, PO, Daily, Disp# 30 tab, Refills: 0, Pharmacy: [id number] Start Date: 06/29/23 Status: Ordered multivitamin Start: 05/18/22 13:11:00 EST, 1 tab, PO, Daily Start Date: 05/18/22 Status: Ordered oxyBUTYnin 15 mg/24 hr oral tablet, extended release Start: 05/09/23 13:03:00 EST, 1 tab, PO, Daily, Disp# 90 tab, PRN: as needed for urinary discomfort, Pharmacy: [id number] Start Date: 05/09/23 Stop Date: 08/07/23 Status: Ordered Ozempic (1 mg dose) 4 mg/3 mL subQ pen Start: 07/26/23 16:09:00 EDT, 1 mg =, subQ, q7days, Disp# 9 mL, Refills: 2, [id number] Start Date: 07/26/23 Status: Ordered vilazodone 40 mg oral tablet TAKE 1 TABLET BY MOUTH EVERY MORNING Start Date: 05/18/22 Status: Ordered Vitamin D2 1.25 mg (50,000 intl units) oral capsule Start: 05/30/23 13:05:00 EST, 1 cap, PO, q7days, Disp# 30 cap, [id number] Start Date: 05/30/23 Status: Ordered Mental Status 07/26/23 Barriers to Learning one year None evide nt Mandatory Health Literacy Documentation Yes Health Literacy Communication Barriers N ever Primary Language Turkish Problem List Condition Confirmation Course Effective Dates Status Health St atus Informant Anxiety Confirmed Active Depression Confirmed Active Diabetes Confirmed Active History of gastric ulcer Confirmed Active History of gastric bypass Confirmed Active HLD (hyperlipidemia) Confirmed Active HTN (hypertension) Confirmed Active Migraine Confirmed Active Obesity Confirmed Active Left knee pain Confirmed Active Diagnosis Diagnosis Type Effective Dates Health Status Clinical Service Informant Arthritis of knee Discharge Diagnosis 06/05/23 Non-Specified Depression Discharge Diagnosis 07/26/23 History of gastric bypass Discharge Diagnosis 07/26/23 Non-Specified Controlled diabetes mellitus with hyperglycemia Discharge Diagnosis 07/26/23 Non-Specified Procedures Procedure Date Related Diagnosis Body Site Status CT of abdomen and pelvis wit h intravenous contrast 1 10/27/22 Completed US EXAM PELVIC COMPLETE 2 10/13/22 Completed Colonoscopy 3 07/19/21 Completed Gastric bypass 4 Complete d Hernia repair 5 Completed Rotator cuff tear 6 Compl eted 11. there is a 5.9 cm simple appearing cystic lesion in the right adnexa as above (report). this is of low suspicion, and could represent a paraovarian cyst, inclusion cyst, or possible a lymphocele 2. a 2.5 x 1.8 cm ovoid structure along the pelvic side wall could represent a mildly enlarged lymph node versus venous varix. a venous varix is favored, and a follow up contrast-enhanced CT scan of the pelvis only is recommended in 6 months time to reassess both of these findings 3. there is heterogeneous enhancement in the lower pole of the right kidney. correlate with clinical findings and urinalysis 4. hepatomegaly and hepatic steatosis 5. additional findings within the report 2IMPRESSION: 1.A 6.9 x 5.3 x 5.9 cm cystic abnormality within the right adnexa. It's unclear if this arises fromthe riht ovary. This could reflect a peritoneal inclusion cyst. However, this is pathologiically indeterminate and a CT of the abdomen and pelvis with contrast is recommended for further evaluation.. 2.Normal endometrial thickness in a postmenopausal patient. 3.Suspected small fundal fibroid. 3Impression: revealed 1 small colon polyp and normal terminal ileum. Repeat 5 years 4about 10 years ago 5umbilical 6to right shoulder Results Most recent to oldest [Reference Range]: 1 Mg-Quest [1.5-2.5 mg/dL] 2.1 mg/dL 1 (07/27/23 10:22 AM) Vitamin P40-Oldgm [200-1100 pg/mL] 354 p g/mL 2 (07/27/23 10:22 AM) Ferritin (QST) [16-232 ng/mL] 65 ng/mL 3 (07/27/23 10:22 AM) 1Result Comment: Specimen Received d/t: 07/27/2023 10:23:00 [facility]: [facility] [address] [place] [address] Devendra Harris MD 2Result Comment: Please Note: Although the reference range for vitamin B12 is 200-1100 pg/mL, it has been reported that between 5 and 10% of patients with values between 200 and 400 pg/mL may experience neuropsychiatric and hematologic abnormalities due to occult B12 deficiency; less than 1% of patients with values above 400 pg/mL will have symptoms. Your request to have a duplicate copy faxed has been acknowledged. Queued to: [id number] FASTING:YES FASTING: YES Specimen Received d/t: 07/27/2023 10:23:00 Lab test performed by: [employer] [facility] [address] [place] [phone] Devendra Harris MD 3Result Comment: Specimen Received d/t: 07/27/2023 10:23:00 Lab test performed by: [employer] [facility] [address] [place] [phone] Devendra Harris MD Vital Signs Most recent to oldest [Reference Range]: 1 Height 167.5 cm (07/26/23 3:25 PM) Patient Weight 121.2 kg (07/26/23 3:25 PM) Body Mass Index 43.2 kg/m2 (07/26/23 3:25 PM) Heart Rate 74 bpm (07/26/23 3:25 PM) Respiratory Rate 17 br/min (07/26/23 3:25 PM) Blood Pressure 138/74mmHg (07/26/23 3:25 PM) Social History Social History Type Response Smoking Status Never smoked cigaret chino Sex FCM Outpt Note * KARLA Rios, Ana Mcghee: PERFORM Event Display: FCM Outpt Note Authored Date: [id number] Chief Complaint 3m f/u - 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 DM2: -On Ozempic weekly, slowly increasing her dosing -Now back to using the coupon and supply has improved -Does not check blood sugars regularly -Is on several medications that cause hyperglycemia -No hypoglycemic episodes, polyuria, polydipsia, polyphagia, numbness/tingling in extremities, poorhealing wounds, foot ulcerations, blurred vision, loss of vision, chest pain, SOB, palpitations, tachycardia, loss of balance or falls. Depression: -Follows with [facility] usually every 4-6 weeks -Currently controlled on Abilify, Lamictal, Vilazodone and Lorazepam -Recently started on Clonidine 0.1mg at bedtime -Helps her to fall asleep but not necessarily to stay asleep. -Mood has remained stable on the above regimen -Denies any roller coaster mood swings -Did discuss that her medications including Abilify and Vilazodone can both lead to weight gain. -Denies any SI/HI but does have trouble with insomnia Review of Systems ROS per HPI Physical Exam Vitals & Measurements HR:74(Monitored) RR:17 BP:138/74 SpO2:97% HT:167.5cm WT:121.200kg(Dosing) WT:121.2kg BMI:43.2 PHQ2 Data(Data Documented on:07/26/2023 15:24) Emotional health assessment NEGATIVE Gen Appearance: Well developed, well nourishedNAD. A&O x 3. HEENT: NCAT. EOMI. Neck supple. No thyromegaly palpable. Lymph: No submandibular, posterior or anterior cervical adenopathy. CV: RRR. No murmurs, rubs, or gallops. Lungs: CTAB. No wheezing, rales or rhonchi. Chest rises symmetrically. Abdomen: Scaphoid. No rashes.NABS x 4. Soft. Non-tender. No CVA tenderness bilaterally.No masses palpable. Ext: No LE edema. + 2 posterior tibial pulses. Skin: [place]. Supple. Good turgor. Assessment/Plan 1.Depression STATUS:Chronic stable. -Follows with [facility] usually every 4-6 weeks -Currently controlled on Abilify, Lamictal, Vilazodone and Lorazepam -Recently started on Clonidine 0.1mg at bedtime -Helps her to fall asleep but not necessarily to stay asleep. -Mood has remained stable on the above regimen -Denies any roller coaster mood swings -Did discuss that her medications including Abilify and Vilazodone can both lead to weight gain. -Denies any SI/HI but does have trouble with insomnia DATA:Labs reviewed. GOAL:Maintain stability. PLAN:Cont current monitoring. Close followup with [facility] with any new concerns or questions. Controlled diabetes mellitus with hyperglycemia STATUS:Chronic stable. -On Ozempic weekly, slowly increasing her dosing -Now back to using the coupon and supply has improved -Does not check blood sugars regularly -Is on several medications that cause hyperglycemia -No hypoglycemic episodes, polyuria, polydipsia, polyphagia, numbness/tingling in extremities, poorhealing wounds, foot ulcerations, blurred vision, loss of vision, chest pain, SOB, palpitations, tachycardia, loss of balance or falls. DATA:Labs reviewed. GOAL:Maintain stability. PLAN:Cont current monitoring. No change in treatments Continue with Ozempic 1mg weekly Get labs prior to next visit Discussed importance of good blood sugar control. Discussed goal FBS of <130. Sequelae of long-term uncontrolled DM reviewed, including retinopathy, kidney disease, etc.. Time spent on pre-visit plannin min Face to face time spent w/ patient:20 min Time spent documenting pertinent clinical information into the EMR:7 min Total time: 31 min Problem List/Past Medical History Ongoing Anxiety Depression Diabetes History of gastric bypass History of gastric ulcer HLD (hyperlipidemia) HTN (hypertension) Left knee pain Migraine Obesity Procedure/Surgical History CT of abdomen and pelvis with intravenous contrast| Service Date: 10/27/2022US EXAM PELVIC COMPLETE| Service Date: 3Colonoscopy| Service Date: 2Rotator cuff tearHernia repairGastric bypass Medications ARIPiprazole(ARIPiprazole 2 mg oral tablet), 2 mg= 1 tab, PO, Daily celecoxib(celecoxib 200 mg oral capsule), 1 cap, PO, Daily, PRN ergocalciferol(Vitamin D2 1.25 mg (50,000 intl units) oral capsule), [address] Int_Unit= 1 cap, PO, q7days lamoTRIgine(lamoTRIgine 150 mg oral tablet), 150 mg= 1 tab, PO, Daily lisinopril(lisinopril 10 mg oral tablet), 10 mg= 1 tab, PO, Daily, 3 refills meloxicam(meloxicam 15 mg oral tablet), 1 tab, PO, Daily multivitamin, 1 tab, PO, Daily oxyBUTYnin(oxyBUTYnin 15 mg/24 hr oral tablet, extended release), 15 mg= 1 tab, PO, Daily, PRN semaglutide(Ozempic (1 mg dose) 4 mg/3 mL subQ pen), 1 mg, subQ, q7days, 2 refills sodium hyaluronate(Euflexxa 10 mg/mL intra-articular solution), 20 mg, intra- articular, q7days vilazodone(vilazodone 40 mg oral tablet) Allergies PCN (penicillin)rash Social History Smoking Status Never smoked cigarettes Alcohol Use:Current Type:Wine Frequency:1-2 times per week - Comments: 1-2 drinks every 1-2 days Substance Abuse - Denies Substance Abuse Tobacco - Denies Tobacco Use Family History Cancer of colon: MGM. Depression: Mother, Daughter and MGM. Glaucoma: MGM. Heart attack: MGF. Hypertension: MGF. Type II diabetes mellitus: MGF. Health Status Family Member(s) Immunizations Vaccine Date Status influenza virus vaccine, inactivated 02/22/2023 Given SARS-CoV-2 mRNA (tozinameran 5y-11y) 01/13/2021 Recorded tetanus/diphtheria/pertuss, acel (Tdap) 11/21/2019 Recorded influenza virus vaccine, inactivated 11/18/2019 Recorded influenza virus vaccine, inactivated 11/26/2017 Recorded influenza virus vaccine, inactivated 12/17/2015 Recorded influenza virus vaccine, inactivated 03/22/2015 Recorded Recommendations Health Maintenance Pending(in the next year) Due Breast Cancer Screening due06/03/23and every 731day Adult COVID-19 Vaccination due07/26/23Unknown Frequency Adult Social Determinants of Health Screening due07/26/23Unknown Frequency Diabetic Eye Exam due07/26/23Unknown Frequency Pneumococcal Vaccine Adults and Adolescents with Chronic Illness due07/26/23One-time only Shingles Vaccine due07/26/23One-time only Due In Future Adult Influenza Vaccine not due until10/08/23and every 1year Diabetes Management A1c not due until10/09/23and every 366day Satisfied(in the past 1 year) Satisfied Adult Influenza Vaccine on02/22/23.Satisfied by JUANI Dominguez Cassidy Body Mass Index on07/26/23.Satisfied by XIANG Stephenson Emma Diabetes Management A1c on10/08/22.Satisfied by JUANI Yepez Lynnae Electronic Signature on File Electronically Reviewed/Signed by: Ana Rios PA-C Author Signature Dt/Tm:07/26/2023 04:10 PM Department of Family Medicine [facility] Patient Care team information Care Team Personnel Name: KARLA Rios Kimberly A Position: Physician Asst Exmpt - Family Med Member Role: Primary Care Provider Address: Address: [address] [address] [place] Care Team Related Persons Name: STEVIE LYLE"
--- OUTSIDE RECORDS SUMMARY | 2023-12-20 15:56 | External Medical Summary | Continuity of Care Document ---
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 Name Role Phone Ana Rios Primary Care Physician [phone] Encounter [facility] [phone] Date(s): 10/18/23 - 10/18/23 [facility] [address] Medical [facility] [address] [id number] [phone] Encounter Diagnosis Diabetes(Discharge Diagnosis) - 10/18/23 HTN (hypertension)(Discharge Diagnosis) - 10/18/23 HLD (hyperlipidemia)(Discharge Diagnosis) - 10/18/23 Acute URI(Discharge Diagnosis) - 10/18/23 Discharge Disposition: Home or Self Care Attending Physician: KARLA Rios Kimberly A Allergies, Adverse Reactions, Alerts Substance Criticality Severity Reaction Reaction Severity Status PCN (penicillin) rash Act rufino Assessment and Plan Extracted from: Title:Office Visit Note Author:KARLA Rios Kim berly A Date:10/18/23 1.Diabetes STATUS:Chronic condition, at goal -On Ozempic 2mg weekly -Does not check blood sugars regularly -Has noticed that she has not been as hungry -Is on several medications that cause hyperglycemia -A1cin Julywasatgoal, 5.6% -No hypoglycemic episodes, polyuria, polydipsia, polyphagia, numbness/tingling in extremities, poor healing wounds, foot ulcerations, blurred vision, loss of vision, chest pain, SOB, palpitations, tachycardia, loss of balance or falls. DATA:Labs reviewed. GOAL:Maintain stability. PLAN:Cont current monitoring. . 2.HTN (hypertension) STATUS:Chronic condition, at goal -Remains uthkujrfIdjtsquigz60vg daily -Does notusually checkBPat home DATA:Labs reviewed. GOAL:Maintain stability. PLAN:Cont current monitoring. Nochange in Vhzrgwkmyb85rg daily Continue to monitor blood pressures outside of the office Ideally pressures should remain less than 130/80 Please bring readings with you to each visit. Avoid excessive salt, NSAIDs, or tobacco use as these can precipitate elevated blood pressures 3.HLD (hyperlipidemia) STATUS:Chronic condition exacerbated/progressive/side effects of treatment -Currently not on statin treatment -Most recent labs inAprilshowedLDLof 143, total of236. -Is trying to eat moreappropriately butstill struggles -ASCVDriskfactorcalculated at7.6% DATA:Labs reviewed. GOAL:Maintain stability. PLAN:Cont current monitoring. Begin Crestor 5mg daily Repeat labs in 2 months Eat anything you can pull out of the ground or tree. All fruits, veggies, nuts are excellent. [place] oil and fish are also good for you. Try to limit eggs, red meats and fatty foods to moderate amount. Be sure to increase dietary fiber. . 4.Acute URI STATUS:Acute, uncomplicated illness/injury -Startedover theweekend -Now hasadry, painfulcoughbut denies anySOB -Runninglowgradefeverand bodyaches -Alsohas asore throatand frontal headache -TriedTylenolwithout much improvement DATA:Labs reviewed. GOAL:Maintain stability. PLAN:Cont current monitoring. Encouraged patient to rest, increase clear fluids, and wash hands frequently to avoid transmission. Discussed completing a rapid influenza test and patient declined this today since it won't greatly change the course of treatment. Recommended trying OTC saline nasal spray, salt water gargles, or Mucinex. Advised her to return to the office if symptoms persist or worsen after 7-10 days, or if she develops a fever over 101 F, shortness of breath or wheezing. Time spent on pre-visit plannin min Face to face time spent w/ patient: 24 min Time spent documenting pertinent clinical information into the EMR:6 min Total time: 34 min Immunizations Given and Recorded Vaccine Date [...] celecoxib 200 mg oral capsule Start: 06/13/23 1:28:00 PM EST, 1 cap, PO, Daily, Disp# 30 cap, Refills: 0, PRN: NEEDED FOR PAIN, Pharmacy: [facility] [id number] Start Date: 06/13/23 Status: Ordered Crestor 5 mg oral tablet Start: 10/18/23 4:37:00 PM EDT, 1 tab, PO, qhs, Disp# 90 tab, Refills: 1, [id number] Start Date: 10/18/23 Stop Date: 04/15/24 Status: Ordered lamoTRIgine 150 mg oral tablet Start: 05/18/22 1:13:00 PM EST, 1 tab, PO, Daily Start Date: 05/18/22 Status: Ordered lisinopril 10 mg oral tablet Start: 06/13/23 9:22:00 PM EST, 1 tab, PO, Daily, Disp# 90 tab, Refills: 3, Pharm[id number] Start Date: 06/13/23 Status: Ordered multivitamin Start: 05/18/22 1:11:00 PM EST, 1 tab, PO, Daily Start Date: 05/18/22 Status: Ordered oxyBUTYnin 15 mg/24 hr oral tablet, extended release Start: 08/07/23 11:10:00 AM EDT, 1 tab, PO, Daily, Disp# 30 tab, Refills: 5, PRN: NEEDED FOR URINARY DISCOMFORT, Pharmacy: [facility] [id number] Start Date: 08/07/23 Status: Ordered Ozempic (2 mg dose) 8 mg/3 mL subQ pen Start: 09/08/23 5:33:00 PM EDT, 2 mg =, subQ, q7days, Disp# 9 mL, Refills: 1, in the abdomen, thigh,or upper arm, Note to Pharmacy: Dx: E11.65; Replaces 1mg dosing, Pharmacy: [id number] Start Date: 09/08/23 Status: Ordered vilazodone 40 mg oral tablet TAKE 1 TABLET BY MOUTH EVERY MORNING Start Date: 05/18/22 Status: Ordered Vitamin D2 1.25 mg (50,000 intl units) oral capsule Start: 05/30/23 1:05:00 PM EST, 1 cap, PO, q7days, Disp# 30 cap, [facility]acy: [id number] Start Date: 05/30/23 Status: Ordered Zithromax Z-Flako 250 mg oral tablet Start: 10/18/23 4:37:00 PM EDT, See Comments, PO, Daily, Disp# 6 tab, 500 mg (2 tabs) on day 1, [id number] mg (1 tab) on days 2-5, Pharmacy: [id number] Start Date: 10/18/23 Status: Ordered Mental Status 10/18/23 Barriers to Learning one year None evide nt Mandatory Health Literacy Documentation Yes Health Literacy Communication Barriers N ever Primary Language Setswana Problem List Condition Confirmation Course Effective Dates Status Health St atus Informant Anxiety Confirmed Active Depression Confirmed Active Diabetes Confirmed Active History of gastric ulcer Confirmed Active History of gastric bypass Confirmed Active HLD (hyperlipidemia) Confirmed Active HTN (hypertension) Confirmed Active Migraine Confirmed Active Obesity Confirmed Active Left knee pain Confirmed Active Diagnosis Diagnosis Type Effective Dates Health Status Cl inical Service Informant Diabetes Discharge Diagnosis 10/18/23 Non-Specified HLD (hyperlipidemia) Discharge Diagnosis 10/18/23 Non-Specified Acute URI Discharge Diagnosis 10/18/23 Non-Specified HTN (hypertension) Discharge Diagnosis 10/18/23 Non-Specified Procedures Procedure Date Related Diagnosis Body [...] 10 years ago 5umbilical 6to right shoulder Vital Signs Most recent to oldest [Reference Range]: 1 Patient Weight 114.5 kg (10/18/23 4:19 PM) Temperature [36.5-37.9 DegC] 36.8 DegC (10/18/23 4:19 PM) Heart Rate 86 bpm (10/18/23 4:19 PM) Respiratory Rate 16 br/min (10/18/23 4:19 PM) Blood Pressure 120/80mmHg (10/18/23 4:19 PM) Cuff Pulse Pressure 40 mmHg (10/18/23 4:19 PM) Social History Social History Type Response Smoking Status Never smoked cigaret chino Sex FCM Outpt Note * KARLA Rios, Ana Mcghee: PERFORM Event Display: FCM Outpt Note Authored Date: Chief Complaint follow up History of Present Illness Patient is a 58yo female who presents today for three month followup. DM2: -On Ozempic 2mg weekly -Does not check blood sugars regularly -Has noticed that she has not been as hungry -Is on several medications that cause hyperglycemia -No hypoglycemic episodes, polyuria, polydipsia, polyphagia, numbness/tingling in extremities, poorhealing wounds, foot ulcerations, blurred vision, loss of vision, chest pain, SOB, palpitations, tachycardia, loss of balance or falls. Depression: -Follows with [place] usually every 4-6 weeks -Currently controlled on [...] trouble with insomnia Review of Systems ROS Per HPI Physical Exam Vitals & Measurements T:36.8C HR:86(Monitored) RR:16 BP:120/80 SpO2:96% WT:114.500kg(Dosing) WT:114.5kg PHQ2 Data(Data Documented on:10/18/2023 16:18) Emotional health assessment NEGATIVE Gen Appearance: Well [...] edema. + 2 posterior tibial pulses. Skin: Dibble. Supple. Good turgor. Assessment/Plan 1.Diabetes STATUS:Chronic condition, at goal -On Ozempic 2mg weekly -Does not check blood sugars regularly -Has noticed that she has not been as hungry -Is on several medications that cause hyperglycemia -A1cin tgoal, 5.6% -No hypoglycemic episodes, polyuria, polydipsia, polyphagia, numbness/tingling in extremities, poorhealing wounds, foot ulcerations, blurred vision, loss of vision, chest pain, SOB, palpitations, tachycardia, loss of balance or falls. DATA:Labs reviewed. GOAL:Maintain stability. PLAN:Cont current monitoring. . 2.HTN (hypertension) STATUS:Chronic condition, at goal -Remains hrfibcijPgsksxmgiq03kb daily -Does notusually checkBPat home DATA:Labs reviewed. GOAL:Maintain stability. PLAN:Cont current monitoring. Nochange in Kbehywlyxh41jd daily Continue to monitor blood pressures outside of the office Ideally pressures should remain less than 130/80 Please bring readings with you to each visit. Avoid excessive salt, NSAIDs, or tobacco use as these can precipitate elevated blood pressures 3.HLD (hyperlipidemia) STATUS:Chronic condition exacerbated/progressive/side effects of treatment -Currently not on statin treatment -Most recent labs inAprilshowedLDLof 143, total of236. -Is trying to eat moreappropriately butstill struggles -ASCVDriskfactorcalculated at7.6% DATA:Labs reviewed. GOAL:Maintain stability. PLAN:Cont current monitoring. Begin Crestor 5mg daily Repeat labs in 2 months Eat anything you can pull out of the ground or tree. All fruits, veggies, nuts are excellent. Oliveoil and fish are also good for you. Try to limit eggs, red meats and fatty foods to moderate amount. Be sure to increase dietary fiber. . 4.Acute URI STATUS:Acute, uncomplicated illness/injury -Startedover theweekend -Now hasadry, painfulcoughbut denies anySOB -Runninglowgradefeverand bodyaches -Alsohas asore throatand frontal headache -TriedTylenolwithout much improvement DATA:Labs reviewed. GOAL:Maintain stability. PLAN:Cont current monitoring. Encouraged patient to rest, increase clear fluids, and wash hands frequently to avoid transmission. Discussed completing a rapid influenza test and patient declined this today since it won't greatly change the course of treatment. Recommended trying OTC saline nasal spray, salt water gargles,or Mucinex. Advised her to return to the office if symptoms persist or worsen after 7-10 days, orif she develops a fever over 101 F, shortness of breath or wheezing. Time spent on pre-visit plannin min Face to face time spent w/ patient: 24 min Time spent documenting pertinent clinical information into the EMR:6 min Total time: 34 min Problem List/Past Medical History Ongoing Anxiety Depression Diabetes History of gastric bypass History of gastric ulcer HLD (hyperlipidemia) HTN (hypertension) Left knee pain Migraine Obesity Procedure/Surgical History CT of abdomen and pelvis with intravenous contrast| Service Date: 10/27/2022US EXAM PELVIC COMPLETE| Service Date: 10/13/2022olonoscopy| Service Date: 07/19/2021otator cuff tearHernia repairGastric bypass Medications ARIPiprazole(ARIPiprazole 2 mg oral tablet), 2 mg= 1 tab, PO, Daily azithromycin(Zithromax Z-Flako 250 mg oral tablet), See Comments, PO, Daily celecoxib(celecoxib 200 mg oral capsule), 1 cap, PO, Daily, PRN ergocalciferol(Vitamin D2 1.25 mg (50,000 intl units) oral capsule), [address] Int_Unit= 1 cap, PO, q7days lamoTRIgine(lamoTRIgine 150 mg oral tablet), 150 mg= 1 tab, PO, Daily lisinopril(lisinopril 10 mg oral tablet), 10 mg= 1 tab, PO, Daily, 3 refills multivitamin, 1 tab, PO, Daily oxyBUTYnin(oxyBUTYnin 15 mg/24 hr oral tablet, extended release), 1 tab, PO, Daily, PRN rosuvastatin(Crestor 5 mg oral tablet), 5 mg= 1 tab, PO, qhs, 1 refills semaglutide(Ozempic (2 mg dose) 8 mg/3 mL subQ pen), 2 mg, subQ, q7days, 1 refills vilazodone(vilazodone 40 mg oral tablet) Allergies PCN [...] Recommendations Health Maintenance Pending(in the next year) OverDue Breast Cancer Screening due06/03/23and every 731day Due Adult Influenza Vaccine due10/08/23and every 1year Diabetes Management A1c due10/09/23and every 366day Adult COVID-19 Vaccination due10/18/23Unknown Frequency Adult Social Determinants of Health Screening due10/18/23Unknown Frequency Diabetic Eye Exam due10/18/23Unknown Frequency Pneumococcal Vaccine Adults and Adolescents with Chronic Illness due10/18/23One-time only Shingles Vaccine due10/18/23One-time only Satisfied(in the past 1 year) Satisfied Adult Influenza Vaccine on02/22/23.Satisfied by JUANI Dominguez Cassidy Body Mass Index on07/26/23.Satisfied by XIANG Stephenson Emma Electronic Signature on File Electronically Reviewed/Signed by: Ana Rios PA-C Author Signature Dt/Tm:10/18/2023 04:44 PM Department of Family Medicine [facility] Patient Care team information Care Team Personnel Name: KARLA Rios, Ana Mcghee Position: Physician Asst Exmpt - Family Med Member Role: Primary Care Provider Address: Address: [address] [facility] [address] [place] [address] Care Team Related Persons Name: STEVIE LYLE"
[2023-12-20] MEDS: LORazepam 2 MG/1 ML VIAL IV STA (16:27)
--- NOTE | 2023-12-20 17:08 | Magnetic Resonance Report ---
MRCP CLINICAL HISTORY: elevated LFT's TECHNIQUE: Utilizing a 1.5 Denice magnet and dedicated coil, multiplanar, multiecho imaging of the [facility] abdomen was performed utilizing heavily T2 weighted pulsing sequences without IV contrast. COMPARISON STUDY: Right upper quadrant ultrasound performed earlier today. FINDINGS: There is no intra or extrahepatic biliary ductal dilatation. No common bile duct calculi ar e identified. The common bile duct measures 6 mm in caliber. There is no pancreatic ductal dilatation . Several small gallstones within the gallbladder are present. The gallbladder is mildly distended; w all thickening. Hepatic steatosis is better depicted on prior ultrasound. Unenhanced images of the sp nalini, adrenal glands and kidneys are unremarkable. No pancreatic abnormality is identified on unenhan rain exam. The caliber and wall thickness of visualized small and large bowel are normal. There are po stoperative findings consistent with Marie-en-Y gastric bypass. IMPRESSION: 1. No biliary ductal dilatation. No common bile duct calculi identified. 2. Cholelithiasis with mild gallbladder distention and mild gallbladder wall thickening. The findings could reflect chronic or acute cholecystitis. A hepatobiliary scan could be obtained if indicated. ACT 112: Negative or not required by law. Electronically signed by: Júnior Bocanegra M.D. 12/20/2023 5:07 PM
[2023-12-20] MEDS ORDERED: OXYBUTYNIN CHLORIDE XL 5 MG TABCR PO PRN (18:06)
[2023-12-20] MEDS ORDERED: LORazepam 2 MG/1 ML VIAL IV PRN (18:39)
[2023-12-20] MEDS: cefTRIAXone SODIUM 2,000 MG/50 ML BAG IV SCH (19:34)
[2023-12-20 19:50] LABS: Hep B Surface Ag with confirm Negative (Negative)
[2023-12-20 19:55] LABS: Hep C Ab Rflx HepCQuant RNA Negative (Negative)
[2023-12-20] MEDS: ACETAMINOPHEN 1,000 MG/100 ML VIAL IV PRN (20:07)
[2023-12-20] MEDS: metroNIDAZOLE 500 MG/100 ML BAG IV SCH (20:08)
[2023-12-20] MEDS: ERGOCALCIFEROL 1250 MCG (50,000 UNITS) CAP PO SCH (21:36)
[2023-12-20] MEDS: FAMOTIDINE 10 MG TABLET PO SCH (21:36)
[2023-12-20] MEDS: MULTI-VITAMIN INFUSION 10 ML, THIAMINE HCL 100 MG, FOLIC ACID 1 MG in SODIUM CHLORIDE 0... IV ONE (21:53)
[2023-12-21] MEDS: KETOROLAC TROMETHAMINE 15 MG/ML VIAL IV PRN (06:49)
[2023-12-21] MEDS: lamoTRIgine 100 MG TAB PO SCH (07:26)
[2023-12-21] MEDS: THIAMINE HCL 100 MG TAB PO SCH (07:26)
[2023-12-21] MEDS: ARIPIprazole 1 MG/ML ORAL SOLN 150 ML BTL PO SCH (07:26)
[2023-12-21] MEDS: lamoTRIgine 25 MG TAB PO SCH (07:27)
[2023-12-21] MEDS: MULTIVITAMIN TAB PO SCH (07:27)
[2023-12-21 07:40] LABS: Basophils # (auto) 0.02 K/uL (0.00-0.20); Basophils % (auto) 0.7 %; Eosinophils # (auto) 0.09 K/uL (0.00-0.50); Eosinophils % (auto) 3.4 %; Hematocrit (blood only) 34.2 % (37.0-47.0); Hemoglobin 11.7 g/dl (12.0-16.0); Immature Granulocytes # (auto) 0.01 K/uL (0.01-0.20); Immature Granulocytes % (auto) 0.4 %; Lymphocytes % (auto) 26.2 %; Mean Corpuscular Hemoglobin 31.1 pg (25.0-34.0); Mean Corpuscular Hgb Conc 34.2 g/dL (32.0-36.0); Mean Platelet Volume 10.6 fL (9.4-12.4); Monocytes # (auto) 0.24 K/uL (0.11-0.59); Neutrophils # (auto) 1.61 K/uL (1.40-6.50); Neutrophils % (auto) 60.3 %; Platelet Count 144 K/uL (130-400); RDW Coefficient of Variation 13.1 % (11.5-14.5); RDW Standard Deviation 43.2 fL (36.4-46.3); Red Blood Count 3.76 M/uL (4.20-5.40); White Blood Count 2.67 K/ul (4.8-10.8)
--- NOTE | 2023-12-21 07:45 | Hospitalist Progress Note ---
Date of Service December 21, 2023 Assessment & Plan Admission and Anticipated Discharge Date Admission Date: December 20, 2023 Results & Data Results & Data Vital Signs (Past 12 Hours) Vital Signs Temp Pulse Resp BP Pulse Ox O2 Del Method 12/21/23 07:23 36.7 C 70 16 130/84 97 Room Air 12/21/23 03:28 36.7 C 72 18 109/69 96 Room Air 12/20/23 23:12 36.9 C 83 18 117/78 95 Room Air
[2023-12-21 08:13] LABS: Albumin Globulin Ratio 1.6 (0.9-2); Albumin Level 4.1 gm/dl (3.4-5.0); Bilirubin,Total 0.7 mg/dl (0.2-1.0); Calcium 8.9 mg/dl (8.6-10.3); Creatinine Clr Calc Pharmacy 128.1 ml/min; Est GFR (African American) 117.3 ml/min; Est GFR (Non-African American) 101.2 ml/min; Globulin 2.6 gm/dl (2.5-4.0); Total Protein 6.7 gm/dl (6.0-8.3)
[2023-12-21] MEDS ORDERED: NEOSTIGMINE METHYLSULFATE 1 MG/ML 10ML VIAL ONE (09:07)
[2023-12-21] MEDS ORDERED: GLYCOPYRROLATE 0.2 MG/ML VIAL ONE (09:07)
[2023-12-21] MEDS ORDERED: fentaNYL citrate PF 100 MCG/2 ML VIAL ONE ×3 (09:07→11:05)
[2023-12-21] MEDS ORDERED: LIDOCAINE 2% 2 ML VIAL/AMP(20MG/ML) INFIL ONE (09:07)
[2023-12-21] MEDS ORDERED: DEXAMETHASONE SOD INJ 4 MG/ML VIAL ONE (09:07)
[2023-12-21] MEDS ORDERED: ROCURONIUM BROMIDE 10 MG/ML 5 ML VIAL IV ONE (09:07)
[2023-12-21] MEDS ORDERED: ONDANSETRON INJ 2 MG/ML 2 ML VIAL ONE (09:07)
[2023-12-21] MEDS ORDERED: PROPOFOL IV EMULSION 10 MG/ML 20 ML VIAL IV ONE (09:07)
[2023-12-21] MEDS ORDERED: MIDAZOLAM HCL 1 MG/ML 2ML VIAL ONE (09:07)
--- NOTE | 2023-12-21 09:08 | Hospitalist Progress Note ---
Date of Service December 21, 2023 Assessment & Plan (1) Cholelithiasis: (2) Elevated LFTs: (3) Chest pain: (4) Depression: Plan #Cholelithiasis -Gallbladder MRI and u/s on 12/19 show cholelithiasis with mild bladder distention and mild gallbladder wall thickening -MRCP without evidence of ductal obstruction. Per GI consult, if her LFTs remain elevated, she would need EUS/ERCP evaluation at a tertiary facility such a [facility] or [facility] [place]S/p laparoscopic cholecystectomy on 12/20 #Elevated LFTs -AST 466, ALT 243, AKLP 143, Tbili 1.8 on admission -Acute hepatitis panel results are pending -Per admission note, patient endorses drinking 3+ glasses of wine per day. -Since admission, AWSS scores are 0 and there are no documented history of withdrawal -DDx includes alcohol hepatitis -LFTs downtrending. Monitor daily. #Chest pain -Chest XR and CTA on 12/19 showed no acute cardiopulmonary findings and in particular no evidence of acute aortic injury -Troponin <2.3, EKG unremarkable -Some chest pain recurrence again last night. Chest pain was 0/10 this morning. #Depression -Continue home medications aripriprazole and lamotrigine. Takes vilazodone at home--no formulary here. Admission and Anticipated Discharge Date Admission Date: December 20, 2023 Supervising Physician Co-Signing Physician Notes I personally examined the patient and verified all camacho points of history and exam, discussed case, and agree with decision making with Dr Hernandez and Taz Guzmán Feeling pretty good postop. Abdominal pain controlled. Answered all questions the best my ability. Vitals noted, in general she is awake and alert pleasant no distress. HEENT normocephalic atraumatic mucous membranes moist. Breathing unlabored no accessory muscle use good effort. Skin without rashes pallor or icterus. Neuro without focal deficits. Abdominal pain/elevated LFTscholecystitisnow postop. Surgical input greatly appreciated. Otherwise as above. DVT prophylaxis with Lovenox. Maricruz Hobson" is a 58-year-old female with a past medical history of gastric bypass 10 years ago, umbilical hernia repair 20 years ago, and COVID+ 2 weeks ago, who presented to the ED on 12/19 morning for chest pain. She reports that a sharp substernal chest pain radiating to her back woke her up at 3am on 12/19. This morning she reports 0/10 chest pain. She did report some of the same substernal pain last night but it was not as severe as before. She does not report any shortness of breath, coughing, palpitations, or edema. She reports fatigue, abdominal cramping, and diarrhea. She reports nausea though thinks it's from COVID recovery. Her last colonoscopy was around 4 years ago with normal results and she is due back in a year. Review of Systems Constitutional: Reports fatigue. Does not report fever, chills, night sweats. Eyes: Does not report acute vision changes, tearing, itching. Ear, Nose, Mouth, Throat: Does not report hearing change, runny nose, stuffiness, sore throat, swollen neck. Respiratory: Does not report SOB, wheeze, cough. Cardiovascular: Additional Comments: Does not report palpitations, edema, orthopnea. Gastrointestinal: Reports abdominal cramping, diarrhea, and some nausea. Does not report dysphagia, bleeding. Genitourinary: Does not report frequency, polyuria, dysuria, hematuria, nocturia. Integumentary: Does not report rashes, itching Endocrine: Does no report heat/cold intolerance, excessive sweating Physical Exam Constitutional: WD/WN, vitals as above Neck: trachea midline, no thyromegaly Respiratory: normal respiratory effort, lungs clear to auscultation Cardiovascular: Regular rate and rhythm. Gastrointestinal (Abdomen): normal bowel sounds, soft. Tender upon provocation in epigastric region and LLQ. Some rebound tenderness in LLQ. Skin: no visible rashes, bruising Psychiatric: A+Ox3, euthymic affect Results & Data Results & Data Vital Signs (Past 12 Hours) Vital Signs Temp Pulse Resp BP Pulse Ox O2 Del Method 12/21/23 03:28 36.7 C 72 18 109/69 96 Room Air 12/20/23 23:12 36.9 C 83 18 117/78 95 Room Air 12/20/23 19:41 36.5 C 77 18 123/84 94 Room Air Resident Activity Tracking Resident Involvement: Resident Care Provided Care Provided: Adult Hospital Medicine Resident Supervision Co-Signing Physician Notes I have reviewed the subjective history, physical exam findings, and assessment and plan with student Dr. Ghosh. Any changes to be noted below: None. (1) Cholelithiasis Biliary obstruction: without biliary obstruction Cholecystitis presence: without cholecystitis Cholelithiasis location: gallbladder Qualified Code(s): K80.20 - Calculus of gallbladder without cholecystitis without obstruction (3) Chest pain Chest pain type: unspecified Qualified Code(s): R07.9 - Chest pain, unspecified
--- NOTE | 2023-12-21 09:22 | Surgery Progress Note ---
Date of Service December 21, 2023 Assessment & Plan (1) Cholelithiasis: Plan: Her MRCP images and results were personally viewed and interpreted by myself She has no signs of choledocholithiasis and her LFTs are trending down this morning She does still have some vague abdominal pain so I think we can proceed with laparoscopic cholecystectomy, possible open, possible intraoperative cholangiogram today Consent was obtained, risks discussed including bleeding, infection, bile leak, ductal injury She most likely passed a stone based on her imaging and lab findings as well as her physical exam (2) Elevated LFTs: Admission and Anticipated Discharge Date Admission Date: December 20, 2023 Subjective Patient seen and examined. Still with epigastric and right upper quadrant abdominal pain. Afebrile. Review of Systems Constitutional: no fever and no chills Eyes: no blind spots and no worsening vision Ear, Nose, Mouth, Throat: no ear pain and no hearing loss Respiratory: no cough and no dyspnea Cardiovascular: no chest pain and no dyspnea on exertion Gastrointestinal: + abdominal pain; no nausea, no vomiting , no constipation and no diarrhea/loose stools Genitourinary: no dysuria and no difficulty urinating Musculoskeletal: no back pain and no neck pain Integumentary: no acne, no changing lesions and no skin ulcer Neurologic: no headache(s) and no abnormal speech Psychiatric: no behavioral changes and no depression Hematologic / Lymphatic: no easy bleeding and no easy bruising Physical Exam Constitutional: WD/WN, vitals as above Eyes: PERRL, conjunctivae normal, anicteric sclerae ENMT: external ear and nose normal, oropharynx normal Neck: trachea midline, no thyromegaly Respiratory: normal respiratory effort, lungs clear to auscultation Cardiovascular: RRR, no murmur, no edema Gastrointestinal (Abdomen): Inspection/Auscultation: abdomen normal to inspection; abdomen not distended Percussion/Palpation: + abdomen tender (Right upper quadrant on deep palpation) and abdomen soft; no guarding and no hernia Negative Khan's Musculoskeletal: no cyanosis or clubbing, extremities motor strength 5/5 Skin: no rashes, warm and dry Neurologic: PERRL, EOMI, accommodation nl, no face palsy, no dysarthria Psychiatric: A+Ox3, euthymic affect Results & Data Vital Signs (Past 12 Hours) Vital Signs Temp Pulse Resp BP Pulse Ox O2 Del Method 12/21/23 07:23 36.7 C 70 16 130/84 97 Room Air 12/21/23 03:28 36.7 C 72 18 109/69 96 Room Air 12/20/23 23:12 36.9 C 83 18 117/78 95 Room Air PG Care Time/CCT Total # of Minutes Spent Total Time Spent with Patient: Total time spent is greater than 50% in coordination of care (as documented) at patient's floor/unit and/or counseling patient: Coding Level of Care Code 21592 SUB INP/OBS CARE 50MIN Diagnoses Cholelithiasis K80.20 Biliary obstruction: without biliary obstruction Cholecystitis presence: without cholecystitis Cholelithiasis location: gallbladder Elevated LFTs R79.89 (1) Cholelithiasis Biliary obstruction: without biliary obstruction Cholecystitis presence: without cholecystitis Cholelithiasis location: gallbladder Qualified Code(s): K80.20 - Calculus of gallbladder without cholecystitis without obstruction
[2023-12-21] MEDS: LACTATED RINGER'S 1,000 ML IV SCH (09:23)
[2023-12-21] MEDS: ENOXAPARIN INJ 40 MG/0.4 ML SYR SQ SCH (09:44)
[2023-12-21] MEDS ORDERED: PROMETHAZINE HCL 6.25 MG in SODIUM CHLORIDE 0.9% 50 ML IV PRN (09:45)
[2023-12-21] MEDS ORDERED: ATROPINE SULFATE 0.1 MG/ML 10ML SYR IV PRN (09:45)
[2023-12-21] MEDS ORDERED: ePHEDrine sulfate 50 MG/ML AMP IV PRN (09:45)
[2023-12-21] MEDS ORDERED: HYDROmorphone INJ 2 MG/ML SYR/VIAL IV PRN (09:45)
--- NOTE | 2023-12-21 09:45 | Anesthesiology Consultation ---
Date of Service December 21, 2023 Assessment & Plan Consults Requested medical & cardiac Pulmonary ASA ASA2E Proposed Anesthesia Anesthesia Type: General Risk / Benefits Reviewed With: PT / POA / Parent / Guardian, Accepts Plan and Informed Consent Obtained History Surgery Operation Date: 12/21/23 07:00 Proposed Procedures p Laparoscopic Cholecystectomy - Hugo Talbert, DO Height/Weight Height: 5 ft 6 in Weight: 107.2 kg Allergies Allergy/AdvReac Type Severity Reaction Status Date / Time Penicillins Allergy Mild Rash Verified 12/21/23 09:14 Medications Home Medications Medication Instructions Recorded Confirmed Last Taken multivitamin [Daily Multivitamin] 1 tab PO DAILY 12/01/22 12/20/23 Unknown aripiprazole 2 mg tablet 2 mg PO DAILY 01/04/23 12/20/23 Unknown lamotrigine 150 mg tablet 150 mg PO DAILY 01/04/23 12/20/23 Unknown lisinopril 10 mg tablet 10 mg PO DAILY 01/04/23 12/20/23 Unknown vilazodone 40 mg tablet (Viibryd) 40 mg PO DAILY 01/04/23 12/20/23 Unknown celecoxib 200 mg capsule 200 mg PO DAILY PRN Pain 12/20/23 12/20/23 Unknown ergocalciferol (vitamin D2) 1,250 50,000 unit PO WK 12/20/23 12/20/23 Unknown mcg (50,000 unit) capsule oxybutynin chloride 15 mg 15 mg PO DAILY PRN urinary 12/20/23 12/20/23 Unknown tablet,extended release 24 hr discomfort rosuvastatin 5 mg tablet 5 mg PO HS 12/20/23 12/20/23 Unknown semaglutide 2 mg/dose (8 mg/3 mL) 2 mg subcut WK 12/20/23 12/20/23 Unknown subcutaneous pen injector (Ozempic) Active Medications Generic Name Dose Route Start Last Admin Trade Name Freq PRN Reason Stop Dose Admin Aripiprazole 2 mg 12/21/23 09:00 12/21/23 07:26 Aripiprazole 1 Mg/Ml Oral Soln 150 Ml Btl PO 01/20/24 08:59 2 mg DAILY LUDIVINA Administration Enoxaparin Sodium 40 mg 12/21/23 10:00 12/21/23 09:44 Enoxaparin Inj 40 Mg/0.4 Ml Syr SQ 01/20/24 09:59 Not Given Q24H LUDIVINA Ergocalciferol 1,250 mcg 12/20/23 19:00 12/20/23 21:36 Ergocalciferol 1250 Mcg (50,000 Units) Cap PO 01/19/24 18:59 1,250 mcg Q7D LUDIVINA Administration Famotidine 10 mg 12/20/23 21:00 12/21/23 07:26 Famotidine 10 Mg Tablet PO 01/19/24 20:59 10 mg BID LUDIVINA Administration Acetaminophen 1,000 mg in 100 mls @ 400 mls/hr 12/20/23 18:00 12/20/23 20:25 Ofirmev IV 12/23/23 17:59 Infused Q8H PRN Infusion pain, first line Ceftriaxone Sodium 2,000 mg in 50 mls @ 100 mls/hr 12/20/23 18:30 12/20/23 20:10 Rocephin IV 12/30/23 18:29 Infused Q24H LUDIVINA Infusion Metronidazole 500 mg in 100 mls @ 100 mls/hr 12/20/23 18:30 12/21/23 03:15 Flagyl IV 12/30/23 18:29 Infused Q8H LUDIVINA Infusion Protocol Lactated Ringer's 1,000 mls @ 15 mls/hr 12/21/23 09:30 12/21/23 09:41 Lr IV 01/20/24 09:29 Infused .Q24H LUDIVINA Infusion Ketorolac Tromethamine 10 mg 12/20/23 15:55 12/21/23 06:49 Ketorolac Tromethamine 15 Mg/Ml Vial IV 12/25/23 15:54 10 mg Q6H PRN Administration Pain, secon dline Lamotrigine 100 mg 12/21/23 09:00 12/21/23 07:26 Lamotrigine 100 Mg Tab PO 01/20/24 08:59 100 mg DAILY LUDIVINA Administration Lamotrigine 50 mg 12/21/23 09:00 12/21/23 07:27 Lamotrigine 25 Mg Tab PO 01/20/24 08:59 50 mg DAILY LUDIVINA Administration Miscellaneous 1 each 12/20/23 19:30 12/21/23 07:10 Vilazodone [Viibryd] 40 Mg Tablet- Order Awaiting Action N/A 01/19/24 19:29 Not Given QS LUDIVINA Multivitamins 1 tab 12/21/23 09:00 12/21/23 07:27 Multivitamin Tab PO 01/20/24 08:59 1 tab DAILY LUDIVINA Administration Thiamine HCl 100 mg 12/21/23 09:00 12/21/23 07:26 Thiamine Hcl 100 Mg Tab PO 01/20/24 08:59 100 mg QAM LUDIVINA Administration NPO Date Last Intake of Fluids: 12/21/23 Time Last Intake of Fluids: 07:26 Last Intake of Fluids Comment: sip water this am with meds Date Last Intake of Solids: 12/19/23 Time Last Intake of Solids: 21:00 Past Medical History Medical History Hyperlipidemia Diabetes Hypertension Exercise / Class Metabolic Activity II 4-5 Yardwork/Stairs/Walk up hill Past Family History Family History Grandmother (Maternal) Colorectal cancer Grandfather (Maternal) Myocardial infarction Other Diabetes Hypertension Denies family history of Ovarian cancer Prostate cancer Breast cancer Uterine cancer Past Surgical History Surgical History S/P tonsillectomy History of umbilical hernia repair S/P gastric bypass S/P shoulder surgery 2 separate shoulders Past Anesthesia History No Hx of Anesthesia Complications and No Family Hx of Anesthesia Complications History of PONV No Hx of PONV and No Hx of Motion Sickness Social History Smoking Status: Never smoker Hx Alcohol Use: Yes Alcohol type: wine alcohol intake frequency: 3 or more drinks per day Hx Substance Use: No Physical Exam Vital Signs Last Vital Signs Temp 36.9 C 12/21/23 09:15 Pulse 89 12/21/23 09:15 Resp 20 12/21/23 09:15 BP 162/102 H 12/21/23 09:15 Pulse Ox 98 12/21/23 09:15 O2 Del Method Room Air 12/21/23 09:15 Constitutional no acute distress ENMT Mouth: no dentition abnormality Thyromental Distance: > or= 3.5 Finger Breadths Mallampati Class: II Neck normal visual inspection Respiratory normal respiratory effort; no respiratory distress Auscultation: lungs clear to auscultation bilaterally Cardiovascular Rate/Rhythm: regular rate and regular rhythm Heart Sounds: no murmur Musculoskeletal Spine: normal cervical ROM Psychiatric Orientation: alert and oriented x 3 Testing Laboratory Results 12/21/23 07:06 12/21/23 07:06 PT 10.5 Seconds (9.0-12.0) 12/20/23 10:58 INR 1.0 (0.9-1.1) 12/20/23 10:58 Urine Color Yellow 12/20/23 Unknown Urine Appearance Clear (Clear) 12/20/23 Unknown Urine pH 5.5 (4.5-7.5) 12/20/23 Unknown Ur Specific Mcbee > 1.045 (1.000-1.030) H 12/20/23 Unknown Urine Protein Negative (Negative) 12/20/23 Unknown Urine Glucose (UA) Negative (Negative) 12/20/23 Unknown Urine Ketones Negative (Negative) 12/20/23 Unknown Urine Nitrite Negative (Negative) 12/20/23 Unknown Ur Leukocyte Esterase Trace (Negative) H 12/20/23 Unknown Urine WBC (Auto) 6-10 /hpf (0-5) H 12/20/23 Unknown Urine RBC (Auto) 0-2 /hpf (0-2) 12/20/23 Unknown U Hyaline Cast (Auto) 0-2 /lpf (0-2) 12/20/23 Unknown U Epithel Cells (Auto) 3-5 /hpf (0-2) H 12/20/23 Unknown Urine Bacteria (Auto) 3+ (None Seen) H 12/20/23 Unknown 12/20/23 Unknown Urine Culture - Preliminary Urine,Clean Catch Gram negative bacilli Gram negative bacilli#2 12/21/23 09:13 POC Glucose 94 Day of Procedure Evaluation. Date of Surgery December 21, 2023 Height/Weight Height: 5 ft 6 in Weight: 107.2 kg Vital Signs Last Vital Signs Temp 36.9 C 12/21/23 09:15 Pulse 89 12/21/23 09:15 Resp 20 12/21/23 09:15 BP 162/102 H 12/21/23 09:15 Pulse Ox 98 12/21/23 09:15 O2 Del Method Room Air 12/21/23 09:15 Allergies Allergy/AdvReac Type Severity Reaction Status Date / Time Penicillins Allergy Mild Rash Verified 12/21/23 09:14 Medications Home Medications Medication Instructions Recorded Confirmed Last Taken multivitamin [Daily Multivitamin] 1 tab PO DAILY 12/01/22 12/20/23 Unknown aripiprazole 2 mg tablet 2 mg PO DAILY 01/04/23 12/20/23 Unknown lamotrigine 150 mg tablet 150 mg PO DAILY 01/04/23 12/20/23 Unknown lisinopril 10 mg tablet 10 mg PO DAILY 01/04/23 12/20/23 Unknown vilazodone 40 mg tablet (Viibryd) 40 mg PO DAILY 01/04/23 12/20/23 Unknown celecoxib 200 mg capsule 200 mg PO DAILY PRN Pain 12/20/23 12/20/23 Unknown ergocalciferol (vitamin D2) 1,250 50,000 unit PO WK 12/20/23 12/20/23 Unknown mcg (50,000 unit) capsule oxybutynin chloride 15 mg 15 mg PO DAILY PRN urinary 12/20/23 12/20/23 Unknown tablet,extended release 24 hr discomfort rosuvastatin 5 mg tablet 5 mg PO HS 12/20/23 12/20/23 Unknown semaglutide 2 mg/dose (8 mg/3 mL) 2 mg subcut WK 12/20/23 12/20/23 Unknown subcutaneous pen injector (Ozempic) Active Medications Generic Name Dose Route Start Last Admin Trade Name Freq PRN Reason Stop Dose Admin Aripiprazole 2 mg 12/21/23 09:00 12/21/23 07:26 Aripiprazole 1 Mg/Ml Oral Soln 150 Ml Btl PO 01/20/24 08:59 2 mg DAILY LUDIVINA Administration Enoxaparin Sodium 40 mg 12/21/23 10:00 12/21/23 09:44 Enoxaparin Inj 40 Mg/0.4 Ml Syr SQ 01/20/24 09:59 Not Given Q24H LUDIVINA Ergocalciferol 1,250 mcg 12/20/23 19:00 12/20/23 21:36 Ergocalciferol 1250 Mcg (50,000 Units) Cap PO 01/19/24 18:59 1,250 mcg Q7D LUDIVINA Administration Famotidine 10 mg 12/20/23 21:00 12/21/23 07:26 Famotidine 10 Mg Tablet PO 01/19/24 20:59 10 mg BID LUDIVINA Administration Acetaminophen 1,000 mg in 100 mls @ 400 mls/hr 12/20/23 18:00 12/20/23 20:25 Ofirmev IV 12/23/23 17:59 Infused Q8H PRN Infusion pain, first line Ceftriaxone Sodium 2,000 mg in 50 mls @ 100 mls/hr 12/20/23 18:30 12/20/23 20:10 Rocephin IV 12/30/23 18:29 Infused Q24H LUDIVINA Infusion Metronidazole 500 mg in 100 mls @ 100 mls/hr 12/20/23 18:30 12/21/23 03:15 Flagyl IV 12/30/23 18:29 Infused Q8H LUDIVINA Infusion Protocol Lactated Ringer's 1,000 mls @ 15 mls/hr 12/21/23 09:30 12/21/23 09:41 Lr IV 01/20/24 09:29 Infused .Q24H LUDIVINA Infusion Ketorolac Tromethamine 10 mg 12/20/23 15:55 12/21/23 06:49 Ketorolac Tromethamine 15 Mg/Ml Vial IV 12/25/23 15:54 10 mg Q6H PRN Administration Pain, secon dline Lamotrigine 100 mg 12/21/23 09:00 12/21/23 07:26 Lamotrigine 100 Mg Tab PO 01/20/24 08:59 100 mg DAILY LUDIVINA Administration Lamotrigine 50 mg 12/21/23 09:00 12/21/23 07:27 Lamotrigine 25 Mg Tab PO 01/20/24 08:59 50 mg DAILY LUDIVINA Administration Miscellaneous 1 each 12/20/23 19:30 12/21/23 07:10 Vilazodone [Viibryd] 40 Mg Tablet- Order Awaiting Action N/A 01/19/24 19:29 Not Given QS LUDIVINA Multivitamins 1 tab 12/21/23 09:00 12/21/23 07:27 Multivitamin Tab PO 01/20/24 08:59 1 tab DAILY LUDIVINA Administration Thiamine HCl 100 mg 12/21/23 09:00 12/21/23 07:26 Thiamine Hcl 100 Mg Tab PO 01/20/24 08:59 100 mg QAM LUDIVINA Administration Past Anesthesia History No Hx of Anesthesia Complications and No Family Hx of Anesthesia Complications History of PONV No Hx of PONV and No Hx of Motion Sickness NPO Date Last Intake of Fluids: 12/21/23 Time Last Intake of Fluids: 07:26 Last Intake of Fluids Comment: sip water this am with meds Date Last Intake of Solids: 12/19/23 Time Last Intake of Solids: 21:00 HCG & FBG Results 12/21/23 09:13 POC Glucose 94 Home Medications Home Medications Medication Instructions Recorded Confirmed Last Taken multivitamin [Daily Multivitamin] 1 tab PO DAILY 12/01/22 12/20/23 Unknown aripiprazole 2 mg tablet 2 mg PO DAILY 01/04/23 12/20/23 Unknown lamotrigine 150 mg tablet 150 mg PO DAILY 01/04/23 12/20/23 Unknown lisinopril 10 mg tablet 10 mg PO DAILY 01/04/23 12/20/23 Unknown vilazodone 40 mg tablet (Viibryd) 40 mg PO DAILY 01/04/23 12/20/23 Unknown celecoxib 200 mg capsule 200 mg PO DAILY PRN Pain 12/20/23 12/20/23 Unknown ergocalciferol (vitamin D2) 1,250 50,000 unit PO WK 12/20/23 12/20/23 Unknown mcg (50,000 unit) capsule oxybutynin chloride 15 mg 15 mg PO DAILY PRN urinary 12/20/23 12/20/23 Unknown tablet,extended release 24 hr discomfort rosuvastatin 5 mg tablet 5 mg PO HS 12/20/23 12/20/23 Unknown semaglutide 2 mg/dose (8 mg/3 mL) 2 mg subcut WK 12/20/23 12/20/23 Unknown subcutaneous pen injector (Ozempic) Active Medications Generic Name Dose Route Start Last Admin Trade Name Freq PRN Reason Stop Dose Admin Aripiprazole 2 mg 12/21/23 09:00 12/21/23 07:26 Aripiprazole 1 Mg/Ml Oral Soln 150 Ml Btl PO 01/20/24 08:59 2 mg DAILY LUDIVINA Administration Enoxaparin Sodium 40 mg 12/21/23 10:00 12/21/23 09:44 Enoxaparin Inj 40 Mg/0.4 Ml Syr SQ 01/20/24 09:59 Not Given Q24H LUDIVINA Ergocalciferol 1,250 mcg 12/20/23 19:00 12/20/23 21:36 Ergocalciferol 1250 Mcg (50,000 Units) Cap PO 01/19/24 18:59 1,250 mcg Q7D LUDIVINA Administration Famotidine 10 mg 12/20/23 21:00 12/21/23 07:26 Famotidine 10 Mg Tablet PO 01/19/24 20:59 10 mg BID LUDIVINA Administration Acetaminophen 1,000 mg in 100 mls @ 400 mls/hr 12/20/23 18:00 12/20/23 20:25 Ofirmev IV 12/23/23 17:59 Infused Q8H PRN Infusion pain, first line Ceftriaxone Sodium 2,000 mg in 50 mls @ 100 mls/hr 12/20/23 18:30 12/20/23 20:10 Rocephin IV 12/30/23 18:29 Infused Q24H LUDIVINA Infusion Metronidazole 500 mg in 100 mls @ 100 mls/hr 12/20/23 18:30 12/21/23 03:15 Flagyl IV 12/30/23 18:29 Infused Q8H LUDIVINA Infusion Protocol Lactated Ringer's 1,000 mls @ 15 mls/hr 12/21/23 09:30 12/21/23 09:41 Lr IV 01/20/24 09:29 Infused .Q24H LUDIVINA Infusion Ketorolac Tromethamine 10 mg 12/20/23 15:55 12/21/23 06:49 Ketorolac Tromethamine 15 Mg/Ml Vial IV 12/25/23 15:54 10 mg Q6H PRN Administration Pain, secon dline Lamotrigine 100 mg 12/21/23 09:00 12/21/23 07:26 Lamotrigine 100 Mg Tab PO 01/20/24 08:59 100 mg DAILY LUDIVINA Administration Lamotrigine 50 mg 12/21/23 09:00 12/21/23 07:27 Lamotrigine 25 Mg Tab PO 01/20/24 08:59 50 mg DAILY LUDIVINA Administration Miscellaneous 1 each 12/20/23 19:30 12/21/23 07:10 Vilazodone [Viibryd] 40 Mg Tablet- Order Awaiting Action N/A 01/19/24 19:29 Not Given QS LUDIVINA Multivitamins 1 tab 12/21/23 09:00 12/21/23 07:27 Multivitamin Tab PO 01/20/24 08:59 1 tab DAILY LUDIVINA Administration Thiamine HCl 100 mg 12/21/23 09:00 12/21/23 07:26 Thiamine Hcl 100 Mg Tab PO 01/20/24 08:59 100 mg QAM LUDIVINA Administration Exercise / Class Metabolic Activity Metabolic Activity: II 4-5 Yardwork/Stairs/Walk up hill Physical Exam Constitutional: no acute distress Mouth: no dentition abnormality Thyromental Distance: > or= 3.5 Finger Breadths Mallampati Class: II Neck: + visual inspection normal Respiratory: + respiratory effort normal and + clear to auscultation bilaterally; no respiratory distress Cardiovascular: + regular rate and + regular rhythm; no murmur Musculoskeletal: no limited cervical ROM Psychiatric: + alert and + oriented x 3 ASA ASA2E Proposed Anesthesia Proposed Anesthesia: General Risk / Benefits Reviewed With: PT / POA / Parent / Guardian, Accepts Plan and Informed Consent Obtained
[2023-12-21] MEDS ORDERED: SUGAMMADEX SODIUM 200 MG/2 ML VIAL IV ONE (10:16)
[2023-12-21] MEDS: BUPIVACAINE/EPINEPHRINE 0.25% 1:200,000 30 ML VIAL ONE (11:01)
--- NOTE | 2023-12-21 11:02 | Gastrointestinal Consultation ---
Date of Consultation December 21, 2023 Assessment & Plan (1) Cholelithiasis: 58 year old female with history of obesity s/p rygb presenting with epigastric abdominal pain, imaging concerning for gallstones with possible distention and wall thickening w/ elevated transaminases. MRCP w/o apparent CBD stone, her LFTs are improving this AM, perhaps she passed a small stone. Appreciate timing of CCY per general surgery Given her RYGB anatomy, if her LFTs remain elevated, she would need EUS/ERCP evaluation at a tertiary facility such a [facility] [place] or [facility] [place] Continue to trend LFTs Recall GI with any questions or concerns. Thank you for allowing us to participate in the care of this patient. Please call with any acute changes, questions or concerns. Please see addendum below with additional recommendation from my supervising physician. I spent a total of 60 minutes on the date of service in review of patient's record, and previously obtained information in person and appropriate medical visit, discussion and education of plan, with patient and/or caregiver, placing orders for tests/referral/procedures as medically necessary and documentation of pertinent clinical information in patient's medical records for their visit today. (2) Elevated LFTs: Supervising Physician Co-Signing Physician Notes Patient seen and examined. Case discussed with Reinaldo DEVLIN. Patient seen by me post cholecystectomy and feeling well. Defer to surgery for management. IP GI Service will sign off. History of Present Illness Reason for Consultation: transaminitis Requesting Physician: Alexandra Attending Physician: Keagan Morris, History of Present Illness 58 year old female with with history of RYGB, OA, depression and others below who presented with upper abd pain - GI asked to evaluate for elevated LFTs. Pt was seen and evaluated, chart reviewed. Notes that she had a similar episode of abdominal about 1 month ago. "Toughed" it out at home. Suggests was feeling well until symptoms returned this week around Monday. Epigastric pain with radiation through to her back. No nausea/vomiting. No fever, chills, CP, SOB. Tbili 1.8 --> 0.7 AST 466 --> 175 ALT 243 --> 218 ALKP 143 --> 142 MRCP 2023: No biliary ductal dilatation. No common bile duct calculi identified. Cholelithiasis with mild gallbladder distention and mild gallbladder wall thickening. The findings could reflect chronic or acute cholecystitis. A hepatobiliary scan could be obtained if indicated. ABD US 2023: Cholelithiasis with mild gallbladder distention. No definite sonographic Khan sign. The findings are not highly suggestive of acute cholecystitis although a hepatobiliary scan could be obtained if indicated.Hepatic steatosis. Allergies Allergy/AdvReac Type Severity Reaction Status Date / Time Penicillins Allergy Mild Rash Verified 12/21/23 09:14 Home Medications Medication Instructions Recorded Confirmed Type multivitamin [Daily Multivitamin] 1 tab PO DAILY 12/01/22 12/20/23 History aripiprazole 2 mg tablet 2 mg PO DAILY 01/04/23 12/20/23 History lamotrigine 150 mg tablet 150 mg PO DAILY 01/04/23 12/20/23 History lisinopril 10 mg tablet 10 mg PO DAILY 01/04/23 12/20/23 History vilazodone 40 mg tablet (Viibryd) 40 mg PO DAILY 01/04/23 12/20/23 History celecoxib 200 mg capsule 200 mg PO DAILY PRN Pain 12/20/23 12/20/23 History ergocalciferol (vitamin D2) 1,250 50,000 unit PO WK 12/20/23 12/20/23 History mcg (50,000 unit) capsule oxybutynin chloride 15 mg 15 mg PO DAILY PRN urinary 12/20/23 12/20/23 History tablet,extended release 24 hr discomfort rosuvastatin 5 mg tablet 5 mg PO HS 12/20/23 12/20/23 History semaglutide 2 mg/dose (8 mg/3 mL) 2 mg subcut WK 12/20/23 12/20/23 History subcutaneous pen injector (Ozempic) Patient History Medical History (Updated 12/21/23 @ 00:29 by Camron Mitchell MD) Hyperlipidemia Diabetes Hypertension Surgical History (Updated 12/21/23 @ 13:20 by Brenda Sosa RN) Hx laparoscopic cholecystectomy (12/21/23) Laparoscopic Cholecystectomy(Not Applicable) - Hugo Talbert DO S/P tonsillectomy History of umbilical hernia repair S/P gastric bypass S/P shoulder surgery 2 separate shoulders Family History Grandmother (Maternal) Colorectal cancer Grandfather (Maternal) Myocardial infarction Other Diabetes Hypertension Denies family history of Ovarian cancer Prostate cancer Breast cancer Uterine cancer Social History Smoking Status: Never smoker Hx Alcohol Use: Yes Alcohol type: wine Hx Substance Use: No Preferred Language: Nepali Communication Ability: Effective 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 Physical Exam Constitutional: WD/WN, vitals as above Respiratory: normal respiratory effort, lungs clear to auscultation Cardiovascular: Rate/Rhythm: regular rate and regular rhythm Gastrointestinal (Abdomen): normal bowel sounds, soft, nontender, no hepatosplenomegaly Skin: no rashes, warm and dry Results & Data Vital Signs (Past 12 Hours) Vital Signs Temp Pulse Resp BP Pulse Ox O2 Del Method 12/21/23 09:15 36.9 C 89 20 162/102 H 98 Room Air 12/21/23 07:23 36.7 C 70 16 130/84 97 Room Air 12/21/23 03:28 36.7 C 72 18 109/69 96 Room Air 12/20/23 23:12 36.9 C 83 18 117/78 95 Room Air Laboratory Results 12/21/23 12/21/23 12/20/23 Range/Units 09:13 07:06 Unknown WBC 2.67 L (4.8-10.8) K/ul RBC 3.76 L (4.20-5.40) M/uL Hgb 11.7 L (12.0-16.0) g/dl POC Hgb (12.0-16.0) g/dl Hct 34.2 L (37.0-47.0) % POC Hct (37-47) % MCV 91.0 (80.0-100.0) fL MCH 31.1 (25.0-34.0) pg MCHC 34.2 (32.0-36.0) g/dL RDW Std Deviation 43.2 (36.4-46.3) fL RDW Coeff of Christelle 13.1 (11.5-14.5) % Plt Count 144 (130-400) K/uL MPV 10.6 (9.4-12.4) fL Immature Gran % (Auto) 0.4 % Neut % (Auto) 60.3 % Lymph % (Auto) 26.2 % [place] % (Auto) 9.0 % Eos % (Auto) 3.4 % Baso % (Auto) 0.7 % Neut # (Auto) 1.61 (1.40-6.50) K/uL Lymph # (Auto) 0.70 L (1.20-3.40) K/uL [place] # (Auto) 0.24 (0.11-0.59) K/uL Eos # (Auto) 0.09 (0.00-0.50) K/uL Baso # (Auto) 0.02 (0.00-0.20) K/uL Immature Gran # (Auto) 0.01 (0.01-0.20) K/uL PT (9.0-12.0) Seconds INR (0.9-1.1) POC Sodium (135-144) mmol/L Sodium 141 (136-145) mmol/L POC Potassium (3.3-5.0) mmol/L Potassium 4.0 (3.5-5.1) mmol/L POC Chloride (101-112) mmol/L Chloride 110 H (98-107) mmol/L Carbon Dioxide 25 (21-32) mmol/L POC Total CO2 (24-31) mmol/L Anion Gap 6 (3-11) POC Anion Gap (16-25) mmol/L POC BUN (7-18) mg/dl BUN 9 (6-23) mg/dl Creatinine 0.60 (0.6-1.2) mg/dl POC Creatinine (0.6-1.3) mg/dl Est Cr Clr Drug Dosing 128.1 ml/min Est GFR ( Amer) 117.3 ml/min Est GFR (Non-Af Amer) 101.2 ml/min BUN/Creatinine Ratio 15.0 (10-20) Glucose 93 (70-99(Fasting)) mg/dl POC Glucose 94 (70-99) mg/dl POC Glucose (other) (70-99) mg/dl Calcium 8.9 (8.6-10.3) mg/dl POC Ioniz Calcium Blanca (1.12-1.32) mmol/l Total Bilirubin 0.7 D (0.2-1.0) mg/dl Direct Bilirubin (0-0.2) mg/dl AST 175 H (13-39) U/L ALT 218 H (7-52) U/L Alkaline Phosphatase 142 H (34-104) U/L Troponin I High Sens (0-14) pg/ml Total Protein 6.7 (6.0-8.3) gm/dl Albumin 4.1 (3.4-5.0) gm/dl Globulin 2.6 (2.5-4.0) gm/dl Albumin/Globulin Ratio 1.6 (0.9-2) Lipase (11-82) U/L Urine Color Yellow Urine Appearance Clear (Clear) Urine pH 5.5 (4.5-7.5) Ur Specific [place] > 1.045 H (1.000-1.030) Urine Protein Negative (Negative) Urine Glucose (UA) Negative (Negative) Urine Ketones Negative (Negative) Urine Blood Negative (Negative) Urine Nitrite Negative (Negative) Urine Bilirubin Negative (Negative) Urine Urobilinogen Negative (Negative) Ur Leukocyte Esterase Trace H (Negative) Urine WBC (Auto) 6-10 H (0-5) /hpf Urine RBC (Auto) 0-2 (0-2) /hpf U Hyaline Cast (Auto) 0-2 (0-2) /lpf U Epithel Cells (Auto) 3-5 H (0-2) /hpf Urine Bacteria (Auto) 3+ H (None Seen) Hepatitis A IgM Ab Hep Bs Antigen (Negative) Hep B Core IgM Ab Hepatitis C Antibody (Negative) 12/20/23 12/20/23 12/20/23 Range/Units 18:45 11:06 10:58 WBC 5.08 (4.8-10.8) K/ul RBC 4.03 L (4.20-5.40) M/uL Hgb 12.4 (12.0-16.0) g/dl POC Hgb 12.2 (12.0-16.0) g/dl Hct 36.8 L (37.0-47.0) % POC Hct 36 L (37-47) % MCV 91.3 (80.0-100.0) fL MCH 30.8 (25.0-34.0) pg MCHC 33.7 (32.0-36.0) g/dL RDW Std Deviation 43.2 (36.4-46.3) fL RDW Coeff of Christelle 13.0 (11.5-14.5) % Plt Count 141 (130-400) K/uL MPV 10.3 (9.4-12.4) fL Immature Gran % (Auto) 0.2 % Neut % (Auto) 74.4 % Lymph % (Auto) 16.1 % [place] % (Auto) 8.1 % Eos % (Auto) 0.6 % Baso % (Auto) 0.6 % Neut # (Auto) 3.78 (1.40-6.50) K/uL Lymph # (Auto) 0.82 L (1.20-3.40) K/uL [place] # (Auto) 0.41 (0.11-0.59) K/uL Eos # (Auto) 0.03 (0.00-0.50) K/uL Baso # (Auto) 0.03 (0.00-0.20) K/uL Immature Gran # (Auto) 0.01 (0.01-0.20) K/uL PT 10.5 (9.0-12.0) Seconds INR 1.0 (0.9-1.1) POC Sodium 139 (135-144) mmol/L Sodium 139 (136-145) mmol/L POC Potassium 4.2 (3.3-5.0) mmol/L Potassium 4.3 (3.5-5.1) mmol/L POC Chloride 105 (101-112) mmol/L Chloride 105 (98-107) mmol/L Carbon Dioxide 26 (21-32) mmol/L POC Total CO2 24 (24-31) mmol/L Anion Gap 8 (3-11) POC Anion Gap 15.0 L (16-25) mmol/L POC BUN 16 (7-18) mg/dl BUN 16 (6-23) mg/dl Creatinine 0.67 (0.6-1.2) mg/dl POC Creatinine 0.7 (0.6-1.3) mg/dl Est Cr Clr Drug Dosing 112.8 ml/min Est GFR ( Amer) 113.1 ml/min Est GFR (Non-Af Amer) 97.6 ml/min BUN/Creatinine Ratio 23.9 H (10-20) Glucose 90 (70-99(Fasting)) mg/dl POC Glucose (70-99) mg/dl POC Glucose (other) 92 (70-99) mg/dl Calcium 9.4 (8.6-10.3) mg/dl POC Ioniz Calcium Blanca 1.17 (1.12-1.32) mmol/l Total Bilirubin 1.8 H (0.2-1.0) mg/dl Direct Bilirubin 1.2 H (0-0.2) mg/dl AST 466 H (13-39) U/L ALT 243 H (7-52) U/L Alkaline Phosphatase 143 H (34-104) U/L Troponin I High Sens < 2.3 (0-14) pg/ml Total Protein 7.3 (6.0-8.3) gm/dl Albumin 4.6 (3.4-5.0) gm/dl Globulin 2.7 (2.5-4.0) gm/dl Albumin/Globulin Ratio 1.7 (0.9-2) Lipase 64 (11-82) U/L Urine Color Urine Appearance (Clear) Urine pH (4.5-7.5) Ur Specific [place] (1.000-1.030) Urine Protein (Negative) Urine Glucose (UA) (Negative) Urine Ketones (Negative) Urine Blood (Negative) Urine Nitrite (Negative) Urine Bilirubin (Negative) Urine Urobilinogen (Negative) Ur Leukocyte Esterase (Negative) Urine WBC (Auto) (0-5) /hpf Urine RBC (Auto) (0-2) /hpf U Hyaline Cast (Auto) (0-2) /lpf U Epithel Cells (Auto) (0-2) /hpf Urine Bacteria (Auto) (None Seen) Hepatitis A IgM Ab Pending Hep Bs Antigen Negative (Negative) Hep B Core IgM Ab Pending Hepatitis C Antibody Negative (Negative) PG Care Time/CCT Total # of Minutes Spent Total Time Spent with Patient: Total time spent is greater than 50% in coordination of care (as documented) at patient's floor/unit and/or counseling patient: Coding Level of Care Code 67465 IN/OBS CONSULT LVL 4,60M Diagnoses Cholelithiasis K80.20 Biliary obstruction: without biliary obstruction Cholecystitis presence: without cholecystitis Cholelithiasis location: gallbladder Elevated LFTs R79.89 (1) Cholelithiasis Biliary obstruction: without biliary obstruction Cholecystitis presence: without cholecystitis Cholelithiasis location: gallbladder Qualified Code(s): K80.20 - Calculus of gallbladder without cholecystitis without obstruction
--- NOTE | 2023-12-21 11:07 | Post Operative Brief Note ---
PG Immediate Post Op with CF Date of Surgery December 21, 2023 Pre & Post Diagnosis Operation Date: 12/21/23 07:00 Pre-Op Diagnosis: Cholelithiasis Post-Op Diagnosis: Cholelithiasis, Chronic Cholecystitis I identified the patient and participated in the time-out.: Yes Procedure Operation Date: 12/21/23 07:00 Actual Procedures p Laparoscopic Cholecystectomy(Not Applicable) - Hugo Talbert DO Surgeon Hugo Talbert DO Bindery Machine Feeder Offbearer Lupis Moon PA-C Estimated Blood Loss 10 Findings Consistent with Post-Op Diagnosis Specimens Specimen Description: A. Gallbladder and contents Anesthesia Type General Complications none Disposition Disposition: Recovery Room
--- NOTE | 2023-12-21 11:12 | Operative Report ---
PG Post Operative Report Pre & Post Diagnosis Operation Date: 12/21/23 07:00 Pre-Op Diagnosis: Cholelithiasis Post-Op Diagnosis: Cholelithiasis, Chronic Cholecystitis I identified the patient and participated in the time-out.: Yes Procedure Operation Date: 12/21/23 07:00 Actual Procedures p Laparoscopic Cholecystectomy(Not Applicable) - Hugo Tablert DO Surgeon Hugo Talbert DO Appraiser Auditor Lupis Moon PA-C Estimated Blood Loss 10 Findings Consistent with Post-Op Diagnosis Fluids see anesthesia record Specimens Gallbladder to pathology Drains None Anesthesia Type General Complications none Disposition Disposition: Recovery Room Indications 58 yo female with cholelithiasis, concern for acute cholecystitits Description of Procedure The patient was brought to the operating room and placed in the supine position with both arms extended. At this time she underwent general endotracheal anesthesia without any problems. She was given appropriate pre-operative antibiotics. Her abdomen prepped and draped in the usual sterile fashion. A timeout was called, the procedure was verified as Laparoscopic cholecystectomy, possible open, possible intra-operative cholangiogram. Surgical, nursing and anesthesia teams agreed and the procedure was begun. After injection of 0.25% Marcaine with epinephrine, a supraumbilical horizontal incision was made and carried down to the fascia using S-retractors. The abdominal wall was then elevated with towel clamps and abdomen entered using the Veress needle confirming position using the saline drop test. Pneumoperitoneum was established. 5mm trocar was placed. Laparoscope was introduced. No injury from entry into the abdomen was visualized after inspection of the abdomen. Three further ports were placed under direct visualization. One 11mm in the subxiphoid region and two 5mm in the RUQ. At this time the abdomen was inspected and the gallbladder identified. The gallbladder fundus was grasped and retracted cephalad. The gallbladder infundibulum was then grasped and retracted laterally. The cystic duct and cystic artery were then identified and skeletonized. The critical view of safety was obtained. The cystic duct was very large and I did replace the 11 mm port with a 12 mm port and tried to fire a 45 mm black load GLENYS stapler across this, however was unable to get the correct angle in order to do this. The artery was clipped twice proximally once distally and divided using scissors. The same was then done with the cystic duct and the clips did appear to close off the duct completely. The gallbladder was then taken off of the liver bed using electrocautery and placed in an endocatch bag and removed from the subxiphoid port. The liver bed was then inspected and no bile leak or bleeding was evident. The subxiphoid port was then closed using 0-Vicryl using the suture passer. The trocars were then removed under direct visualization and no bleeding was present. Abdomen was desufflated. The skin was then closed using 4-0 Monocryl in a subcuticular fashion. Surgical glue was applied. Needle and sponge counts were correct x 2. At this time the patient was awoken from anesthesia and extubated having remained stable throughout the entire case. The patient was then transported to PACU in stable condition. The physician assistant professor of history was present and scrubbed for the entire case. She was essential in positioning, prepping and draping the patient, driving the laparoscope, retraction and exposure, closure of the incisions and placement of the dressings. I attest to the content of the Intraoperative Record and any orders documented therein. Any exceptions are noted below.
[2023-12-21] MEDS: FOLIC ACID 1 MG in SYRINGE 9.8 ML IV SCH (12:12)
--- NOTE | 2023-12-21 15:09 | Anesthesiology Progress Note ---
Date of Service December 21, 2023 Anesthesia Post Procedure Vital Signs Vital Signs: Temp Pulse Pulse Resp BP BP Pulse Ox 12/21/23 15:04 36.9 C 85 16 133/82 93 12/21/23 13:59 93 H 18 107/73 93 12/21/23 13:05 37.0 C 82 16 125/79 93 12/21/23 12:33 36.5 C 78 16 122/87 95 12/21/23 12:05 36.9 C 83 20 119/81 94 12/21/23 11:55 36.4 C L 81 13 116/71 95 12/21/23 11:45 81 15 121/78 100 12/21/23 11:35 84 16 124/77 100 12/21/23 11:25 82 14 128/85 100 12/21/23 11:18 36.7 C 86 15 136/72 95 12/21/23 09:15 36.9 C 89 20 162/102 H 98 12/21/23 07:23 36.7 C 70 16 130/84 97 12/21/23 03:28 36.7 C 72 18 109/69 96 12/20/23 23:12 36.9 C 83 18 117/78 95 12/20/23 19:41 36.5 C 77 18 123/84 94 12/20/23 18:09 36.5 C 67 18 129/85 97 12/20/23 17:30 105 H 19 121/95 95 O2 Del Method O2 Flow Rate 12/21/23 15:04 Room Air 12/21/23 13:59 Room Air 12/21/23 13:05 Room Air 12/21/23 12:33 Room Air 12/21/23 12:05 Room Air 12/21/23 11:55 Oxymask 0 12/21/23 11:45 Oxymask 4 12/21/23 11:35 Oxymask 8 12/21/23 11:25 Oxymask 8 12/21/23 11:18 Oxymask 8 12/21/23 09:15 Room Air 12/21/23 07:23 Room Air 12/21/23 03:28 Room Air 12/20/23 23:12 Room Air 12/20/23 19:41 Room Air 12/20/23 18:09 Room Air 12/20/23 17:30 Room Air Pain Intensity Bilateral Medial Abdomen: Pain Intensity: 1 Head: Pain Intensity: 2 Transfer of Care Handoff Completed per policy Notes Mental Status: alert / awake / arousable and participated in evaluation Nausea / Vomiting: adequately controlled Pain: adequately controlled Airway Patency, RR, SpO2: stable & adequate BP & HR: stable & adequate Hydration State: stable & adequate Anesthetic Complications: no major complications apparent and Pt Satisfied with anesthetic care
[2023-12-21] MEDS: VILAZODONE HCL 1 EA PO SCH (16:29)
--- NOTE | 2023-12-21 18:46 | Billing Data ---
Date of Service December 21, 2023 Coding Level of Care Code 40727 SUB INP/OBS CARE
[2023-12-21] MEDS: MoRPHine SULFATE 2 MG/ML CARP IV PRN (20:42)
[2023-12-22 07:05] LABS: Basophils # (auto) 0.01 K/uL (0.00-0.20); Basophils % (auto) 0.2 %; Eosinophils # (auto) 0.05 K/uL (0.00-0.50); Eosinophils % (auto) 0.9 %; Hematocrit (blood only) 32.8 % (37.0-47.0); Hemoglobin 10.5 g/dl (12.0-16.0); Immature Granulocytes # (auto) 0.02 K/uL (0.01-0.20); Immature Granulocytes % (auto) 0.4 %; Lymphocytes # (auto) 1.01 K/uL (1.20-3.40); Lymphocytes % (auto) 19.1 %; Mean Corpuscular Hemoglobin 30.4 pg (25.0-34.0); Mean Corpuscular Volume 95.1 fL (80.0-100.0); Mean Platelet Volume 10.3 fL (9.4-12.4); Monocytes # (auto) 0.51 K/uL (0.11-0.59); Monocytes % (auto) 9.7 %; Neutrophils # (auto) 3.68 K/uL (1.40-6.50); Neutrophils % (auto) 69.7 %; Platelet Count 136 K/uL (130-400); RDW Coefficient of Variation 13.2 % (11.5-14.5); Red Blood Count 3.45 M/uL (4.20-5.40); White Blood Count 5.28 K/ul (4.8-10.8)
--- NOTE | 2023-12-22 07:13 | Discharge Summary ---
Date of Service December 22, 2023 Admission HPI Per Admitting Provider Leticia is a 58-year-old female with a past medical history of gastric bypass who presents with epigastric and substernal chest pain which began approximately 12 hours prior to hospitalist assessment with a constant stabbing pain since that time. She was found to have a obstructive transaminitis. Chest CTA for initial chest pain was without acute abnormality. Due to transaminitis gallbladder ultrasound was obtained and showed cholelithiasis with mild gallbladder distention. Patient's pain had clinically improved on reassessment to around 3/10. 8/10 epigastric pain radiating across her bilateral back sudden onset ~3am 'woke me from a sleep.' Improved to 2/10, seemed to gradually improve since arriving in the ER and w/ fluids and tylenol/pepcid. No history of exertional ches tpain/chest pain. No history of GERD/reflux. BMs regular, brown. No josef colored BMs, no hematochezia/melana. No fevers or chills, feels colder than normal today. No shortness of breath. No kidney problems. No lung problems. No heart problems. No hx diabetes. No dysuria. No voiding changes/problems. Thirsty, but diminished appetite. No nausea/vomiting. Medical History: Reviewed Medications: Reviewed. Rash to PCN Surgical History: Reviewed Family history: Reviewed Allergies: Reviewed Social History: No tobacco product use. ETOH every other day 1 glass of wine. Code Status: Full Code Discharge Data Consultations 12/20/23 15:20 ED Decision to Admit Stat 12/20/23 18:06 Consult Gastroenterology Routine 12/20/23 18:26 Consult General Surgery Routine Procedures Performed Operation Date: 12/21/23 07:00 Actual Procedures p Laparoscopic Cholecystectomy(Not Applicable) - Hugo Talbert, DO Hospital Course Plan #Cholelithiasis -Gallbladder MRI and u/s on 12/19 show cholelithiasis with mild bladder distention and mild gallbladder wall thickening -MRCP without evidence of ductal obstruction. Per GI consult, if her LFTs remain elevated, she would need EUS/ERCP evaluation at a tertiary [place] such [place] [facility] [place] [facility] [place] -S/p laparoscopic cholecystectomy on 12/20 #Elevated LFTs -AST 466, ALT 243, AKLP 143, Tbili 1.8 on admission -Acute hepatitis panel results are pending -Per admission note, patient endorses drinking 3+ glasses of wine per day. -Since admission, AWSS scores are 0 and there are no documented history of withdrawal -DDx includes alcohol hepatitis -LFTs downtrending. Monitor daily. #Chest pain -Chest XR and CTA on 12/19 showed no acute cardiopulmonary findings and in particular no evidence of acute aortic injury -Troponin <2.3, EKG unremarkable -Some chest pain recurrence again last night. Chest pain was 0/10 this morning. #Depression -Continue home medications aripriprazole and lamotrigine. Takes vilazodone at home--no formulary here.
[2023-12-22 07:22] VITALS: RESP 16
--- NOTE | 2023-12-22 07:24 | Discharge Summary ---
Date of Service December 22, 2023 Admission HPI Per Admitting Provider Leticia is a 58-year-old female with a past medical history of gastric bypass who presents with epigastric and substernal chest pain which began approximately 12 hours prior to hospitalist assessment with a constant stabbing pain since that time. She was found to have a obstructive transaminitis. Chest CTA for initial chest pain was without acute abnormality. Due to transaminitis gallbladder ultrasound was obtained and showed cholelithiasis with mild gallbladder distention. Patient's pain had clinically improved on reassessment to around 3/10. 8/10 epigastric pain radiating across her bilateral back sudden onset ~3am 'woke me from a sleep.' Improved to 2/10, seemed to gradually improve since arriving in the ER and w/ fluids and tylenol/pepcid. No history of exertional ches tpain/chest pain. No history of GERD/reflux. BMs regular, brown. No josef colored BMs, no hematochezia/melana. No fevers or chills, feels colder than normal today. No shortness of breath. No kidney problems. No lung problems. No heart problems. No hx diabetes. No dysuria. No voiding changes/problems. Thirsty, but diminished appetite. No nausea/vomiting. Medical History: Reviewed Medications: Reviewed. Rash to PCN Surgical History: Reviewed Family history: Reviewed Allergies: Reviewed Social History: No tobacco product use. ETOH every other day 1 glass of wine. Code Status: Full Code Admission Exam Per Admitting Provider General: A&Ox3. NAD. Cooperative. HEENT: Atraumatic, normocephalic. Vision/hearing grossly intact Pulm: CTAB A&P. -wheezes, -rales, -rhonchi. Symmetrical chest rise. No increased work of breathing. No respiratory distress. Cardiac: RRR, -mrg. Radial pulses intact and symmetrical. Abdominal:+epigastric and RUQ TTP without rebound/guarding. Abd soft. Ext: warm, dry Principal Diagnosis Cholelithiasis Discharge Exam Constitutional WD/WN, vitals as above Respiratory normal respiratory effort, lungs clear to auscultation Cardiovascular Regular rate and rhythm Skin No visible rashes, discharge Psychiatric A+Ox3, euthymic affect Discharge Data Allergies Allergy/AdvReac Type Severity Reaction Status Date / Time Penicillins Allergy Mild Rash Verified 12/21/23 09:14 Consultations 12/20/23 15:20 ED Decision to Admit Stat 12/20/23 18:06 Consult Gastroenterology Routine 12/20/23 18:26 Consult General Surgery Routine Procedures Performed Operation Date: 12/21/23 07:00 Actual Procedures p Laparoscopic Cholecystectomy(Not Applicable) - Hugo Talbert, Ordered Studies 12/20/23 11:12 CT angio chest dissec wo/w con Stat 12/20/23 12:31 US gallbladder Stat 12/20/23 15:24 MR MRCP Urgent Hospital Course (1) Cholelithiasis: (2) Elevated LFTs: (3) Chest pain: (4) Depression: Plan Leticia is a 58-year-old female with a past medical history of gastric bypass 10 years ago who was admitted for sharp epigastric and substernal chest pain radiating to the back on 12/19. Patient was found to have cholelithiasis and s/p laparoscopic cholecystectomy on 12/20. #Cholelithiasis -Gallbladder MRI and u/s on 12/19 show cholelithiasis with mild bladder distention and mild gallbladder wall thickening -MRCP without evidence of ductal obstruction. Per GI consult, if her LFTs remain elevated, she would need EUS/ERCP evaluation at a tertiary facility such a [facility] or [facility] -S/p laparoscopic cholecystectomy on 12/20, did well post-op -to take Tylenol and/or ibuprofen OTC for pain management. To schedule f/u with primary care provider in 1 week. To see surgeon for f/u in 2 weeks. #Elevated LFTs, improved -AST 466, ALT 243, AKLP 143, Tbili 1.8 on admission -Acute hepatitis panel results; neg for hep A,B or C -Per admission note, patient endorses drinking 3+ glasses of wine per day. -Since admission, AWSS scores are 0 and there are no documented history of withdrawal - continued to trend down throughout admission #Chest pain, resolved -Chest XR and CTA on 12/19 showed no acute cardiopulmonary findings and in particular no evidence of acute aortic injury -Troponin <2.3, EKG unremarkable - has resolved Total Time Total Time Spent Total Time Spent (In Minutes): As per attending attestation. Discharge Plan Discharge Items Patient Disposition: Home - Self-Care Reason For Visit: ?[place] Discharge Diagnosis: laparoscopic cholecystectomy Activity: Per Instructions section Lifting: No more than 10 pounds Bathing Comment: may shower; no soaking in tubs/pools x 2 weeks. Driving/Machine Use: no driving while on narcotics for pain Non-emergency contact: Primary Care Provider and Surgeon Call non-emergency contact if: you have any medication questions, your pain is not controlled, your pain is worsening, you have a fever, your temperature is above 101.5, your wound has increased redness, your wound has increased drainage and your wound pain has increased Follow-up/Referrals: Hugo Talbert DO [Physician] - 01/11/24 9:15 am (please call to schedule follow up in clinic within 2 weeks ) Ana Rios PA-C [Primary Care Provider] - 12/27/23 10:25 am (with Dr. Gonzalez ) Diet: Regular Addtl Attending Provider Instructions: You may remove your outer surgical dressings on 12/22. You will have small white bandages on underneath that are over your incisions. You may shower with these on. They will tend to fall off on their own within 7-10 days. You may purchase Tylenol and/or Ibuprofen over the counter if needed for additional pain control over the next few days. Take per manufacturers instructions Addtl [employer] Administrator Provider Instructions: You were admitted to the hospital for acute episode of abdominal pain, found to have gallstones. You then had your gallbladder removed by our surgery folks. As you just had surgery, you may notice soreness when moving around, especially when changing positions or twisting, as they had to cut through your abdominal muscles to get your gallbladder out. It will take time for everything to heal, and you should expect to be sore for 2-4 weeks. No heavy lifting (more than 10 lbs) until you follow up with the surgeon in the office. You may take over the counter tylenol or ibuprofen for pain and we will provide you a work note on discharge. Please call your primary care physician either today or Monday to make an appointment to see them next week. Let them know you were just in the hospital. Pending Studies at Discharge: Yes Studies:: surgical pathology Stand-Alone Forms: My [facility] [employer] Work/School Release Medications and DC Order Prescriptions: New ondansetron 4 mg tablet,disintegrating 4 mg PO DAILY PRN (Reason: nausea and vomiting) 5 Days Qty: 10 0RF Continued lisinopril 10 mg tablet 10 mg PO DAILY vilazodone [Viibryd] 40 mg tablet 40 mg PO DAILY aripiprazole 2 mg tablet 2 mg PO DAILY lamotrigine 150 mg tablet 150 mg PO DAILY multivitamin [Daily Multivitamin] 1 tab PO DAILY celecoxib 200 mg capsule 200 mg PO DAILY PRN (Reason: Pain) oxybutynin chloride 15 mg tablet extended release 24hr 15 mg PO DAILY PRN (Reason: urinary discomfort ) ergocalciferol (vitamin D2) 1,250 mcg (50,000 unit) capsule 50,000 unit PO WK Rx Instructions: rosuvastatin 5 mg tablet 5 mg PO HS Ozempic 2 mg/dose (8 mg/3 mL) pen injector 2 mg SUBCUT WK Discharge Orders: Discharge Order (Routine); Ordered 12/22/23 Ordered By: Lori Hernandez Admission Data Admit Date/Time: 12/20/23 15:54 Attending Provider: Keagan Morris Admit Provider: Jos Acosta Primary Care Provider: Ana Rios Other Providers: Jos Acosta; Roque Fischer; Hugo Talbert. Other Interventions: Discharge Summary Assessment (RN) Last Done: 12/22/23 12:57 Supervising Physician Co-Signing Physician Notes I personally examined the patient and verified all camacho points of history and exam, discussed case, and agree with decision making with Dr Hernandez and Taz Ghosh MS2 Feeling pretty good eating well and feels up to going home. Vitals noted, in general she is awake and alert pleasant no distress. HEENT normocephalic atraumatic mucous membranes moist. Breathing unlabored no accessory muscle use good effort. Skin without rashes pallor or icterus. Neuro without focal deficits. Abdominal pain/elevated LFTscholecystitisnow postop. Surgical input greatly appreciated. Otherwise as above. DVT prophylaxis with Lovenox. safe/stable for home Resident Activity Tracking Resident Involvement: Resident Care Provided Care Provided: Adult Hospital Medicine Resident Supervision Co-Signing Physician Notes I have reviewed the subjective history, physical exam findings, and assessment and plan with student Dr. Ghosh. Any changes to be noted below: None.
[2023-12-22 07:27] LABS: Albumin Globulin Ratio 1.5 (0.9-2); Albumin Level 3.8 gm/dl (3.4-5.0); BUN Creatinine Ratio 11.9 (10-20); Bilirubin,Total 0.4 mg/dl (0.2-1.0); Calcium 8.8 mg/dl (8.6-10.3); Creatinine Clr Calc Pharmacy 130.3 ml/min; Est GFR (African American) 117.9 ml/min; Est GFR (Non-African American) 101.7 ml/min; Globulin 2.5 gm/dl (2.5-4.0); Potassium 4.2 mmol/L (3.5-5.1); Total Protein 6.3 gm/dl (6.0-8.3)
[2023-12-22] MEDS: ACETAMINOPHEN 500 MG TAB PO PRN (08:09)
[2023-12-22 11:07] LABS: Hepatitis A Antibody IgM NON-REACTIVE (NON-REACTIVE); Hepatitis B Core Antibody IgM NON-REACTIVE (NON-REACTIVE)
--- NOTE | 2023-12-22 11:25 | Surgery Progress Note ---
Date of Service December 22, 2023 Assessment & Plan (1) Cholelithiasis: Plan: LFTs continue to improve Her pain is controlled and she is tolerating a diet She can be discharged from a surgical standpoint today with follow-up with me in 2 weeks Surgical sign off at this time, please call with any questions No need for any antibiotics (2) Elevated LFTs: Admission and Anticipated Discharge Date Admission Date: December 20, 2023 Subjective Patient seen and examined. Pain controlled. No nausea or vomiting. Physical Exam Constitutional: WD/WN, vitals as above Gastrointestinal (Abdomen): Incisions healing well without erythema or drainage Results & Data Vital Signs (Past 12 Hours) Vital Signs Temp Pulse Resp BP BP Pulse Ox O2 Del Method 12/22/23 07:20 36.9 C 67 16 118/71 95 Room Air 12/22/23 02:57 36.8 C 69 18 128/84 96 Room Air PG Care Time/CCT Total # of Minutes Spent Total Time Spent with Patient: Total time spent is greater than 50% in coordination of care (as documented) at patient's floor/unit and/or counseling patient: Coding Level of Care Code 97781 Post Operative Follow-Up Diagnoses Cholelithiasis K80.20 Biliary obstruction: without biliary obstruction Cholecystitis presence: without cholecystitis Cholelithiasis location: gallbladder Elevated LFTs R79.89 (1) Cholelithiasis Biliary obstruction: without biliary obstruction Cholecystitis presence: without cholecystitis Cholelithiasis location: gallbladder Qualified Code(s): K80.20 - Calculus of gallbladder without cholecystitis without obstruction
[2023-12-22 11:41] VITALS: TEMP 97.9; O2SAT 96
[2023-12-22 13:18] VITALS: BP 118/71; PULSE 81
[2023-12-22] MEDS: ONDANSETRON 4 MG OD TAB PO PRN (13:51)
--- NOTE | 2023-12-22 18:58 | Billing Data ---
Date of Service December 22, 2023 Coding Level of Care Code 54991 IN/OBS DISCH 30 MIN/LESS
--- NOTE | 2023-12-22 18:58 | Billing Data ---
Date of Service December 22, 2023 Coding Level of Care Code 00221 IN/OBS DISCH 30 MIN/LESS
== END 2023-12-22 15:21 | disposition home or self-care (01) ==
LOC: ED 10:18 → INTOOBSV 15:54 → SUATTDRO 15:54 → 3W 15:54